=== PATIENT | female | born 1955 | race Caucasian/White ===

== ENCOUNTER → 2016-12-12 | Outpatient (CLI) | payer BC ==
[~2016-12-12] MED LIST: ACET-1311 PO; LEVO125T7 PO; LISI-788 PO; METO50TA16 PO; MULT-506 PO; OXYC-57 PO; PANT40TA PO; SIMV20TA2 PO
--- NOTE | 2016-12-12 08:33 | DIAGNOSTIC IMAGING REPORT ---
BILIARY ULTRASOUND CLINICAL HISTORY: Right upper quadrant abdominal pain COMPARISON STUDY: CT scan dated 08/02/2014 FINDINGS: The pancreas appears normal as visualized. The liver is of increased echogenicity, nonspecific finding often seen in hepatic steatosis. No gallstones are visualized. There is no gallbladder wall thickening. There is no pericholecystic fluid. There is no ductal dilatation. The common bile duct measures 5 mm. There is no right-sided hydronephrosis. IMPRESSION: Increased hepatic echogenicity, a nonspecific finding most often seen in hepatic steatosis. Ultrasonographically normal gallbladder. No ductal dilatation. Electronically signed by: Drake Acuña M.D. 12/12/2016 8:32 AM Dictated Date/Time: 12/12/2016 8:31 AM
--- NOTE | 2016-12-12 08:35 | DIAGNOSTIC IMAGING REPORT ---
BACK ULTRASOUND CLINICAL HISTORY: Subcutaneous cyst. COMPARISON STUDY: No previous studies for comparison. FINDINGS: Sonography of the mid back at site of palpable abnormality was performed. This demonstrated an apparent 3.5 x 3.3 x 0.9 cm elongated hypoechoic lesion within the subcutaneous tissues. No significant color flow is noted. IMPRESSION: Apparent 3.5 x 3.3 x 0.9 cm subcutaneous lesion of the mid back which may reflect the palpable abnormality. This is difficult to differentiate from the adjacent soft tissues. The sonographic appearance is nonspecific and differential considerations include a lipoma or complex cyst. However, clinical follow up to ensure stability is recommended. If interval enlargement, repeat ultrasound or surgical excision is recommended. Electronically signed by: Andres Daugherty M.D. 12/12/2016 8:33 AM Dictated Date/Time: 12/12/2016 8:31 AM
== END | disposition home or self-care (01) ==
LOC: C.ULTRBC 07:54
PROVIDERS: ATTEND Internal Medicine
DX: R10.11 Right upper quadrant pain (principal); L72.9 Follicular cyst of the skin and subcutaneous tissue, unspecified

== ENCOUNTER → 2016-12-19 | Outpatient (CLI) | payer BC ==
[~2016-12-19] MED LIST changes: +SINCALIDE INJ 2.5 MCG in SODIUM CHLORIDE 0.9% 100ML 100 ML IV ONE
--- NOTE | 2016-12-19 11:36 | DIAGNOSTIC IMAGING REPORT ---
NUCLEAR HEPATOBILIARY SCAN WITH EJECTION FRACTION IMAGING CLINICAL HISTORY: Right upper quadrant abdominal pain. COMPARISON STUDY: Abdominal ultrasound dated 12/12/2016.. TECHNIQUE: Dynamic images of the liver and anterior abdomen were obtained every 5 minutes for a total of 60 minutes following the IV administration of 5.2mCi of technetium 99m Choletec. 2.5 mcg of sincalide was then injected with additional images acquired every 5 minutes for 45 minutes to calculate the gallbladder ejection fraction. FINDINGS: The hepatobiliary scan shows prompt and homogeneous hepatic uptake. There is visualized activity within the intra and extrahepatic biliary tree at 15 minutes, and within the gallbladder at 40 minutes. There is normal biliary to bowel transit, with small bowel visualized by 15 minutes. On the sincalide imaging, the gallbladder ejection fraction was measured at 77%. IMPRESSION: 1. Unremarkable nuclear hepatobiliary scan. There is no scintigraphic evidence of cholecystitis. 2. The gallbladder ejection fraction measured 77% which is normal. Electronically signed by: Ba Camara M.D. 12/19/2016 11:35 AM Dictated Date/Time: 12/19/2016 11:34 AM
== END | disposition home or self-care (01) ==
LOC: C.NUCL 08:02
PROVIDERS: ATTEND Internal Medicine
DX: R10.11 Right upper quadrant pain (principal)

== ENCOUNTER → 2017-01-01 | Day surgery (SDC) | payer BC ==
[2016-12-26 11:19] VITALS: BMI 43.0
[~2017-01-01] VITALS: Ht 167.6 cm; Wt 125.0 kg
[~2017-01-01] MED LIST changes: +LIDOCAINE HCL 2% 2 ML VIAL (20MG/ML) ONE; -OXYC-57 PO; +PROPOFOL IV EMULSION 10 MG/ML 20 ML VIAL IV ONE; -SINCALIDE INJ 2.5 MCG in SODIUM CHLORIDE 0.9% 100ML 100 ML IV ONE; +SODIUM CHLORIDE 0.9% 500ML 500 ML IV ONE
[2017-01-01 08:23] VITALS: Ht 167.6 cm; Wt 125.0 kg
[2017-01-01 08:36] VITALS: TEMP 36.8
--- NOTE | 2017-01-01 08:55 | Endo History and Physical ---
History & Physical Date of Service: Jan 01, 2017. Chief Complaint: RUQ ABDOMINAL PAIN Referring Physician: DR. ANIBAL HOLT History of Present Illness RUQ pain and dyspepia Past Medical History Arthritis, Reflux, Hypertension, Thyroid Disease, Other Past Surgical History Hx Cardiac Surgery: No Hx Abdominal Surgery: Yes (HYSTERECTOMY) Hx Post-Op Nausea and Vomiting: Yes Hx Cancer Surgery: No Hx Thoracic Surgery: No Hx Orthopedic: Yes (RT ELBOW ULNAR NERVE TRANSPOSITION, RT CTR, LESI) Hx Urinary Tract Surgery: No Family History Polyp, IBD Social History Smoking Status: Never Smoker Hx Substance Use: No Hx Alcohol Use: Yes (RARELY) Allergies Coded Allergies: Diclofenac (Verified Allergy, Severe, ANAPHYLAXIS, 12/26/16) Ropinirole (Verified Allergy, Unknown, HIVES, 01/01/17) Current Medications Reported Home Medications Medications Dose Route/Sig Max Daily Dose Days Date Category Dose Instructions Protonix (Pantoprazole Sodium) 40 Mg Tab 40 Mg PO QAM 12/26/16 Reported NEW RX Multivitamin (Multivitamins) Tab 1 Tab PO Q2D 02/06/16 Reported Tylenol (Acetaminophen) 325 Mg Tab 650 Mg PO Q6 PRN 02/06/16 Reported Zocor (Simvastatin) 20 Mg Tab 20 Mg PO QPM 08/13/10 Reported Levothroid (Levothyroxine Sodium) 0.125 Mg Tab 0.125 Mg PO QAM 08/13/10 Reported Lopressor (Metoprolol Tartrate) 50 Mg Tab 50 Mg PO BID 05/01/09 Reported Zestoretic 20MG/25MG (HCTZ/Lisinopril) Tab 1 Tab PO QAM 05/01/09 Reported Vital Signs Weight (Kilograms): 125.00 Height (Feet): 5 Height (Inches): 6 Date Time Temp Pulse Resp B/P Pulse Ox O2 Delivery O2 Flow Rate FiO2 01/01/17 08:36 36.8 73 18 130/73 96 Room Air Physical Exam General Appearance: WD/WN, no apparent distress, + obese Respiratory/Chest: Respiratory effort: no dyspnea Auscultation: no wheezing Cardiovascular: Heart Auscultation: RRR, no murmurs Abdomen: Inspection & Palpation: soft, no tenderness, guarding & rebound Assessment and Plan EGD today
--- NOTE | 2017-01-01 09:10 | Discharge Instructions ---
Endoscopy Patient Instructions Date / Procedure(s) Performed Jan 01, 2017. EGD Allergy Information Coded Allergies: Diclofenac (Verified Allergy, Severe, ANAPHYLAXIS, 12/26/16) Ropinirole (Verified Allergy, Unknown, HIVES, 01/01/17) Discharge Date / Findings Jan 01, 2017. Normal endoscopic examination, biopsies pending. Medication Instructions Restart Stopped Medication(s): Restart all medications today. Provider Instructions Activity Restrictions - No exercising or heavy lifting for 24 hours. - Do not drink alcohol the day of the procedure. - Do not drive a car or operate machinery until the day after the procedure. - Do not make any important decisions or sign important papers in 24 hours after the procedure. Following Day: - Return to full activity which may include returning to work/school. Diet Start your diet with liquids and light foods (jello, soup, juice, toast). Then eat your usual diet if not nauseated. Treatment For Common After Affects For mild abdominal pain, bloating, or excessive gas: - Rest - Eat lightly - Lie on right side Follow-Up Information Follow-up with DR. ANIBAL HOLT as scheduled Anesthesia Information What You Should Know You have had a procedure that required some medicine to reduce anxiety and discomfort. This treatment is called moderate sedation. After receiving the treatment, you may be sleepy, but you will be able to breathe on your own. The effects of the treatment may last for several hours. Follow these instructions along with Activity/Diet recommendations noted above: * Do NOT do anything where dizziness or clumsiness would be dangerous. * Rest quietly at home today, then you can be up and about tomorrow. * Have a responsible person stay with you the rest of today. * You may have had an I.V. today. If so, you may take the dressing off later today. Recommendations Call your doctor if: * Trouble breathing * Continuous vomiting for more than 24 hours * Temperature above 101 degrees * Severe abdominal pain or bloating * Pain not relieved by pain medicine ordered * There is increased drainage or redness from any incision * A large amount of rectal bleeding greater than 2-3 tablespoons. (If you had a polyp/s removed or have hemorrhoids, a small amount of blood - from the rectum is to be expected.) * You have any unanswered questions or concerns. IN THE EVENT OF A SERIOUS EMERGENCY, GO TO THE NEAREST EMERGENCY ROOM Your discharge instructions were prepared by provider Rahul Avila. Patient Instructions Signature Page Abbie Leslie Patient (or Guardian) Signature/Date: I have read and understand the instructions given to me by my caregivers. Caregiver/RN/Doctor Signature/Date: The above-named patient and/or guardian has received patient instructions on this date. + Original Patient Signature Page (only) stays with chart. Please make copy for patient.
--- NOTE | 2017-01-01 09:34 | Anesthesiology Progress Note ---
Anesthesia Post Op Note Date & Time Jan 01, 2017 at 09:35 Vital Signs Pain Intensity: 0 Vital Signs Past 12 Hours Date Time Temp Pulse Resp B/P Pulse Ox O2 Delivery O2 Flow Rate FiO2 01/01/17 09:32 61 18 136/75 97 Room Air 01/01/17 09:17 70 20 130/73 95 Room Air 01/01/17 08:36 36.8 73 18 130/73 96 Room Air Notes Mental Status: alert / awake / arousable, participated in evaluation Pt Amnestic to Procedure: Yes Nausea / Vomiting: adequately controlled Pain: adequately controlled Airway Patency, RR, SpO2: stable & adequate BP & HR: stable & adequate Hydration State: stable & adequate Anesthetic Complications: no major complications apparent
[2017-01-01 09:47] VITALS: BP 137/94; PULSE 63; O2SAT 97
--- NOTE | 2017-01-01 10:21 | GI REPORT ---
Procedure Date: 01/01/2017 8:58 AM Procedure: Upper GI endoscopy Indications: Abdominal pain in the right upper quadrant, Dyspepsia Medicines: Monitored Anesthesia Care Complications: No immediate complications. Estimated blood loss: None. Estimated Blood Loss: Estimated blood loss: none. Procedure: Pre-Anesthesia Assessment: - Prior to the procedure, a History and Physical was performed, and patient medications, allergies and sensitivities were reviewed. The patient's tolerance of previous anesthesia was reviewed. - ASA Grade Assessment: II - A patient with mild systemic disease. After obtaining informed consent, the endoscope was passed under direct vision. Throughout the procedure, the patient's blood pressure, pulse, and oxygen saturations were monitored continuously. The scope was introduced through the mouth, and advanced to the third part of duodenum. The upper GI endoscopy was accomplished with ease. The patient tolerated the procedure well. Findings: The upper third of the esophagus, middle third of the esophagus and lower third of the esophagus were normal. The Z-line was regular and was found 38 cm from the incisors. Biopsies were taken with a cold forceps for histology. A small sliding hiatus hernia was present. The entire examined stomach was normal. Biopsies were taken with a cold forceps for Helicobacter pylori testing. The examined duodenum was normal. Verification of patient identification for the specimens was done by the physician and nurse using the patient's name, date and medical record number. Impression: - Normal upper third of esophagus, middle third of esophagus and lower third of esophagus. - Z-line regular, 38 cm from the incisors. Biopsied. - Small sliding hiatus hernia. - Normal stomach. Biopsied. - Normal examined duodenum. Recommendation: - Await pathology results. - Discharge patient to home (with escort). Rahul Avila M.D. Rahul Avila MD 01/01/2017 9:16:01 AM This report has been signed electronically. Note Initiated On: 01/01/2017 8:58 AM I attest to the content of the Intraoperative Record and orders documented therein, exceptions below
== END | disposition home or self-care (01) ==
LOC: C.GI 07:48
PROVIDERS: ATTEND Internal Medicine Gastroenterology
DX: K21.0 Gastro-esophageal reflux disease with esophagitis (principal); K30 Functional dyspepsia; K44.9 Diaphragmatic hernia without obstruction or gangrene; M19.90 Unspecified osteoarthritis, unspecified site; I10 Essential (primary) hypertension; E07.9 Disorder of thyroid, unspecified; Z83.79 Family history of other diseases of the digestive system; Z88.8 Allergy status to other drugs, medicaments and biological substances

== ENCOUNTER → 2017-02-23 | Day surgery (SDC) | payer BC ==
[~2017-02-23] VITALS: Ht 170.2 cm; Wt 125.0 kg
[~2017-02-23] MED LIST changes: +MIDAZOLAM HCL 1 MG/ML 2ML VIAL ONE; +ONDANSETRON INJ 2 MG/ML 2 ML VIAL ONE
[2017-02-23 10:27] VITALS: Ht 170.2 cm; Wt 125.0 kg
[2017-02-23 10:41] VITALS: TEMP 37.2
--- NOTE | 2017-02-23 11:04 | Endo History and Physical ---
History & Physical Date of Service: February 23, 2017. Chief Complaint: RUQ pain Referring Physician: Dr Urrutia History of Present Illness 61 yo CF who presents for colonoscopy secondary to RUQ abdominal pain. Past Medical History Arthritis, Reflux, Hypertension, Thyroid Disease, Other Past Surgical History Hx Cardiac Surgery: No Hx Internal Defibrillator: No Hx Pacemaker: No Hx Abdominal Surgery: Yes (hysterectomy) Hx of Implantable Prosthesis: No Hx Post-Op Nausea and Vomiting: Yes Hx Cancer Surgery: No Hx Thoracic Surgery: No Hx Orthopedic: No Hx Urinary Tract Surgery: No Family History None Social History Smoking Status: Never Smoker Hx Substance Use: No Hx Alcohol Use: No Allergies Coded Allergies: Diclofenac (Verified Allergy, Severe, ANAPHYLAXIS, 12/26/16) Ropinirole (Verified Allergy, Unknown, HIVES, 01/01/17) Current Medications Reported Home Medications Medications Dose Route/Sig Max Daily Dose Days Date Category Dose Instructions Protonix (Pantoprazole Sodium) 40 Mg Tab 40 Mg PO QAM 12/26/16 Reported NEW RX Multivitamin (Multivitamins) Tab 1 Tab PO Q2D 02/06/16 Reported Tylenol (Acetaminophen) 325 Mg Tab 650 Mg PO Q6 PRN 02/06/16 Reported Zocor (Simvastatin) 20 Mg Tab 20 Mg PO QPM 08/13/10 Reported Levothroid (Levothyroxine Sodium) 0.125 Mg Tab 0.125 Mg PO QAM 08/13/10 Reported Lopressor (Metoprolol Tartrate) 50 Mg Tab 50 Mg PO BID 05/01/09 Reported Zestoretic 20MG/25MG (HCTZ/Lisinopril) Tab 1 Tab PO QAM 05/01/09 Reported Vital Signs Weight (Kilograms): 125 Height (Feet): 5 Height (Inches): 7 Date Time Temp Pulse Resp B/P Pulse Ox O2 Delivery O2 Flow Rate FiO2 02/23/17 10:41 37.2 57 18 123/75 100 Room Air Physical Exam General Appearance: WD/WN, no apparent distress Respiratory/Chest: Auscultation: breath sounds normal Cardiovascular: Heart Auscultation: RRR Abdomen: Bowel Sounds: normal Inspection & Palpation: soft, non-distended, no tenderness, guarding & rebound Assessment and Plan Assessment: 61 yo CF who presents for colonoscopy secondary to RUQ abdominal pain. Plan: Proceed with colonoscopy.
--- NOTE | 2017-02-23 11:26 | Discharge Instructions ---
Endoscopy Patient Instructions Date / Procedure(s) Performed February 23, 2017. Colonoscopy Allergy Information Coded Allergies: Diclofenac (Verified Allergy, Severe, ANAPHYLAXIS, 12/26/16) Ropinirole (Verified Allergy, Unknown, HIVES, 01/01/17) Discharge Date / Findings February 23, 2017. Colon polyp Internal hemorrhoids Medication Instructions OK to resume all medications today as prescribed Reported Home Medications Medications Dose Route/Sig Max Daily Dose Days Date Category Dose Instructions Protonix (Pantoprazole Sodium) 40 Mg Tab 40 Mg PO QAM 12/26/16 Reported NEW RX Multivitamin (Multivitamins) Tab 1 Tab PO Q2D 02/06/16 Reported Tylenol (Acetaminophen) 325 Mg Tab 650 Mg PO Q6 PRN 02/06/16 Reported Zocor (Simvastatin) 20 Mg Tab 20 Mg PO QPM 08/13/10 Reported Levothroid (Levothyroxine Sodium) 0.125 Mg Tab 0.125 Mg PO QAM 08/13/10 Reported Lopressor (Metoprolol Tartrate) 50 Mg Tab 50 Mg PO BID 05/01/09 Reported Zestoretic 20MG/25MG (HCTZ/Lisinopril) Tab 1 Tab PO QAM 05/01/09 Reported Provider Instructions Activity Restrictions - No exercising or heavy lifting for 24 hours. - Do not drink alcohol the day of the procedure. - Do not drive a car or operate machinery until the day after the procedure. - Do not make any important decisions or sign important papers in 24 hours after the procedure. Following Day: - Return to full activity which may include returning to work/school. Diet Start your diet with liquids and light foods (jello, soup, juice, toast). Then eat your usual diet if not nauseated. Treatment For Common After Affects For mild abdominal pain, bloating, or excessive gas: - Rest - Eat lightly - Lie on right side Follow-Up Information Follow-up with Dr Urrutia as scheduled Anesthesia Information What You Should Know You have had a procedure that required some medicine to reduce anxiety and discomfort. This treatment is called moderate sedation. After receiving the treatment, you may be sleepy, but you will be able to breathe on your own. The effects of the treatment may last for several hours. Follow these instructions along with Activity/Diet recommendations noted above: * Do NOT do anything where dizziness or clumsiness would be dangerous. * Rest quietly at home today, then you can be up and about tomorrow. * Have a responsible person stay with you the rest of today. * You may have had an I.V. today. If so, you may take the dressing off later today. Recommendations Call your doctor if: * Trouble breathing * Continuous vomiting for more than 24 hours * Temperature above 101 degrees * Severe abdominal pain or bloating * Pain not relieved by pain medicine ordered * There is increased drainage or redness from any incision * A large amount of rectal bleeding greater than 2-3 tablespoons. (If you had a polyp/s removed or have hemorrhoids, a small amount of blood - from the rectum is to be expected.) * You have any unanswered questions or concerns. IN THE EVENT OF A SERIOUS EMERGENCY, GO TO THE NEAREST EMERGENCY ROOM Your discharge instructions were prepared by provider Ren Gimenez. Patient Instructions Signature Page Abbiealejandro Leslie Patient (or Guardian) Signature/Date: I have read and understand the instructions given to me by my caregivers. Caregiver/RN/Doctor Signature/Date: The above-named patient and/or guardian has received patient instructions on this date. + Original Patient Signature Page (only) stays with chart. Please make copy for patient.
--- NOTE | 2017-02-23 11:28 | GI REPORT ---
Procedure Date: 02/23/2017 11:04 AM Procedure: Colonoscopy Indications: Abdominal pain in the right upper quadrant Medicines: Monitored Anesthesia Care Complications: No immediate complications. Estimated Blood Loss: Estimated blood loss: none. Procedure: Pre-Anesthesia Assessment: - Prior to the procedure, a History and Physical was performed, and patient medications and allergies were reviewed. The patient's tolerance of previous anesthesia was also reviewed. The risks and benefits of the procedure and the sedation options and risks were discussed with the patient. All questions were answered, and informed consent was obtained. Prior Anticoagulants: The patient has taken no previous anticoagulant or antiplatelet agents. ASA Grade Assessment: III - A patient with severe systemic disease. After reviewing the risks and benefits, the patient was deemed in satisfactory condition to undergo the procedure. After I obtained informed consent, the scope was passed under direct vision. Throughout the procedure, the patient's blood pressure, pulse, and oxygen saturations were monitored continuously. The scope was introduced through the anus and advanced to the terminal ileum. The colonoscopy was performed without difficulty. The patient tolerated the procedure well. The quality of the bowel preparation was good. The terminal ileum, ileocecal valve, appendiceal orifice, and rectum were photographed. Findings: A 5 mm polyp was found in the cecum. The polyp was sessile. The polyp was removed with a hot snare. Resection and retrieval were complete. Non-bleeding internal hemorrhoids were found during retroflexion. The hemorrhoids were small. Impression: - One 5 mm polyp in the cecum, removed with a hot snare. Resected and retrieved. - Non-bleeding internal hemorrhoids. Recommendation: - Resume previous diet. - Continue present medications. - Repeat colonoscopy for surveillance based on pathology results. - Return to primary care physician as previously scheduled. Ren Gimenez DO 02/23/2017 11:27:43 AM This report has been signed electronically. Note Initiated On: 02/23/2017 11:04 AM I attest to the content of the Intraoperative Record and orders documented therein, exceptions below
[2017-02-23 11:59] VITALS: BP 115/84; PULSE 59; O2SAT 96
--- NOTE | 2017-02-23 12:01 | Anesthesiology Progress Note ---
Anesthesia Post Op Note Date & Time February 23, 2017 at 12:01 Vital Signs Pain Intensity: 0 Vital Signs Past 12 Hours Date Time Temp Pulse Resp B/P Pulse Ox O2 Delivery O2 Flow Rate FiO2 02/23/17 11:59 59 20 115/84 96 Room Air 02/23/17 11:44 61 20 115/71 94 Room Air 02/23/17 11:29 73 20 95/58 95 Room Air 02/23/17 10:41 37.2 57 18 123/75 100 Room Air Notes Mental Status: alert / awake / arousable, participated in evaluation Pt Amnestic to Procedure: Yes Nausea / Vomiting: adequately controlled Pain: adequately controlled Airway Patency, RR, SpO2: stable & adequate BP & HR: stable & adequate Hydration State: stable & adequate Anesthetic Complications: no major complications apparent Pt did well.
== END | disposition home or self-care (01) ==
LOC: C.GI 10:11
PROVIDERS: ATTEND Internal Medicine
DX: D12.0 Benign neoplasm of cecum (principal); K64.8 Other hemorrhoids; R10.11 Right upper quadrant pain; I10 Essential (primary) hypertension; K21.9 Gastro-esophageal reflux disease without esophagitis; E07.9 Disorder of thyroid, unspecified; M19.90 Unspecified osteoarthritis, unspecified site; Z79.899 Other long term (current) drug therapy

== ENCOUNTER → 2017-08-10 | Outpatient (CLI) | payer BC ==
[~2017-08-10] MED LIST changes: -LIDOCAINE HCL 2% 2 ML VIAL (20MG/ML) ONE; -MIDAZOLAM HCL 1 MG/ML 2ML VIAL ONE; -ONDANSETRON INJ 2 MG/ML 2 ML VIAL ONE; -PROPOFOL IV EMULSION 10 MG/ML 20 ML VIAL IV ONE; -SODIUM CHLORIDE 0.9% 500ML 500 ML IV ONE
[2017-08-10 16:53] LABS: URINE APPEARANCE CLEAR (CLEAR); URINE BILIRUBIN NEG (NEG); URINE COLOR YELLOW; URINE EPITHELIAL CELL AUTO 0-5 /lpf (0-5); URINE NITRITE NEG (NEG); URINE PH 6.5 (4.5-7.5); URINE SPECIFIC GRAVITY 1.009 (1.000-1.030); UROBILINOGEN NEG (NEG); ZZUR CULT IF INDIC CLEAN CATCH NO
[2017-08-10 16:54] LABS: MANUAL MICROSCOPIC REQUIRED? NO; REVIEW REQ? NO
== END | disposition home or self-care (01) ==
LOC: C.LABSPEC 16:24
PROVIDERS: ATTEND Obstetrics & Gynecology
DX: R35.0 Frequency of micturition (principal)

== ENCOUNTER → 2017-08-10 | Outpatient (CLI) | payer BC | END | disposition home or self-care (01) | LOC: C.PAPS 09:41 | PROVIDERS: ATTEND Obstetrics & Gynecology | DX: Z01.419 Encounter for gynecological examination (general) (routine) without abnormal findings (principal) ==

== ENCOUNTER 2021-12-24 11:40 | Observation (INO) ==
--- NOTE | 2021-09-23 15:17 | PAT Medication Instructions ---
Medication Instructions Date of Service September 23, 2021 Home Medications Medication Instructions Recorded metoprolol tartrate 50 mg tablet 25 mg PO BID #60 tab 05/27/21 (Lopressor) tramadol 50 mg tablet 50 - 100 mg PO Q6H PRN #15 tab 06/02/21 simvastatin 20 mg tablet 20 mg PO HS #90 tab 08/19/21 metoprolol tartrate 50 mg tablet (Lopressor) 25 mg PO BID tramadol 50 mg tablet 50 - 100 mg PO Q6H PRN simvastatin 20 mg tablet 20 mg PO HS acetaminophen 650 mg tablet,extended release 650 mg PO Q12H PRN cholecalciferol (vitamin D3) 25 mcg (1,000 unit) capsule (Vitamin D3) 25 mcg PO QAM clindamycin phosphate 1 % topical solution 1 applic TOP DAILY PRN ibuprofen 200 mg capsule (Motrin IB) 200 mg PO Q6H PRN levothyroxine 137 mcg tablet 137 mcg PO QAM lisinopril 20 mg-hydrochlorothiazide 25 mg tablet 1 tab PO QAM ASK your surgeon for instructions ibuprofen 200 mg capsule (Motrin IB) 200 mg PO Q6H PRN STOP taking 24 hours before surgery clindamycin phosphate 1 % topical solution 1 applic TOP DAILY PRN DO NOT take the morning of surgery cholecalciferol (vitamin D3) 25 mcg (1,000 unit) capsule (Vitamin D3) 25 mcg PO QAM lisinopril 20 mg-hydrochlorothiazide 25 mg tablet 1 tab PO QAM Take morning of surgery With a small sip of water, OTHERWISE NOTHING TO EAT OR DRINK AFTER MIDNIGHT: metoprolol tartrate 50 mg tablet (Lopressor) 25 mg PO BID tramadol 50 mg tablet 50 - 100 mg PO Q6H PRN(okay to take up to 4 hours prior to surgery if needed). acetaminophen 650 mg tablet,extended release 650 mg PO Q12H PRN(okay to take up to 4 hours prior to surgery if needed). levothyroxine 137 mcg tablet 137 mcg PO QAM Take evening before surgery metoprolol tartrate 50 mg tablet (Lopressor) 25 mg PO BID tramadol 50 mg tablet 50 - 100 mg PO Q6H PRN(if needed) simvastatin 20 mg tablet 20 mg PO HS acetaminophen 650 mg tablet,extended release 650 mg PO Q12H PRN(if needed) Other Notes If you have any questions please call us at [phone] or [phone] or [phone] or [phone]
--- NOTE | 2021-12-17 11:01 | Anesthesiology Consultation ---
Date of Service December 17, 2021 Assessment & Plan (1) Encounter for pre-operative examination: - upcoming PCP routine visit 12/18/2021. - PCP office visit 06/11/2021 [place]: "...needs a knee replacement, but has to wait 12 weeks after her Cortisone injection. Carotid stenosis - last carotid u/s completed 2015 showed less than 50% stenosis b/l. Last carotid Doppler was 03/09/2020 and showed no significant stenosis. Hypertension - the patient is compliant with lisinopril/HCTZ as well as metoprolol. Blood pressure is controlled in the office today. She c/o feeling fatigued and woozy. Persisted despite increase in her levothyroxine. We discussed cutting her metoprolol in 10/13 from 50mg to 25mg BID and seeing if her fatigue/wooziness improves. She admits she had a sleep study years ago which showed no apnea but did show restless legs. She is using crutches today and has pain in her left knee. She has not checked BP at home, but has not checked recently. Hypothyroidism - patient is compliant with use of levothyroxine 125mcg daily. She still is feeling somewhat fatigued. No hot/cold sensation. No abnormal weight loss or weight gain. Most recent TSH is elevated at 4.9. We discussed increasing her Levothyroxine to 137mcg daily...Abnormal mammogram - the patient had a stable mammogram in January,. She notes she needs to reschedule but would like to wait until after her knee is taking care of. Tubular adenoma - on colonoscopy 02/23/2017. GI recommends repeat in 5 years..." Pt states that with medication change feels better and now is only occasionally tired in afternoon since reducing physical activity due to knee. Denies dizziness, lightheadedness, weakness or "wooziness." - COVID screening: Per assessment on 12/17/2021: Travel screen negative, no known COVID-19 positive contacts or current COVID-19 related symptoms in past 2 weeks. Patient vaccinated. Surgeon arranging preop COVID testing, scheduled 12/20/2021. Awaiting results. Chart Review Chart Review: Acceptable Risk for Surgery (will also review upcoming PCP visit) and Patient seen in Pre Admission Testing Teaching & Discussion Pre-Anesthesia Teaching/Discussion Notes: Instructed NPO after midnight before surgery, except medications with 15 cc of water. Medication instructions provided according to the PAT guidelines. History Surgery Operation Date: 10/15/21 10:15 Proposed Procedures p Left Total Knee Arthroplasty - Ez Vital MD Operation Date: 12/24/21 13:40 Proposed Procedures p Left Total Knee Arthroplasty - Ez Vital MD Height/Weight Height: 5 ft 7 in Weight: 136.8 kg Allergies Allergy/AdvReac Type Severity Reaction Status Date / Time diclofenac Allergy Severe Anaphylaxis Verified 12/13/21 12:41 Medications Home Medications Medication Instructions Recorded Confirmed Last Taken metoprolol tartrate 50 mg tablet 25 mg PO BID #60 tab 05/27/21 12/13/21 Unknown (Lopressor) simvastatin 20 mg tablet 20 mg PO HS #90 tab 08/19/21 12/13/21 Unknown acetaminophen 650 mg 650 mg PO Q12H PRN 09/23/21 12/13/21 Unknown tablet,extended release cholecalciferol (vitamin D3) 25 25 mcg PO QAM 09/23/21 12/13/21 Unknown mcg (1,000 unit) capsule (Vitamin D3) ibuprofen 200 mg capsule (Motrin 200 mg PO Q6H PRN 09/23/21 12/13/21 Unknown IB) levothyroxine 137 mcg tablet 137 mcg PO QAM 09/23/21 12/13/21 Unknown lisinopril 20 1 tab PO QAM 09/23/21 12/13/21 Unknown mg-hydrochlorothiazide 25 mg tablet Past Medical History Medical History (Updated 12/17/21 @ 16:41 by Janene Sandoval PA-C) Carotid artery stenosis There is mild to moderate echogenic atherosclerotic plaque present. No evidence of hemodynamically significant carotid stenosis-02/2020 carotid doppler GERD (gastroesophageal reflux disease) controlled, stable per pt History of basal cell carcinoma nose s/p Moh's Hyperlipidemia Hypertension controlled, stable per pt Hypothyroidism Osteoarthritis Ureteral stone TO FOLLOW UP WITH UROLOGY, pt reports no issues, ongoing monitoring Patient denies h/o stroke, seizures, heart attack, heart failure, DM, blood clots or blood transfusions. Exercise / Class Metabolic Activity III < 4 Walking/Shop/Light housework (denies CP or SOB) Past Family History Family History Mother Hypertension Kidney stones Father Prostate cancer Denies family history of Ovarian cancer Breast cancer Colorectal cancer Past Surgical History Surgical History Family history of reaction to anesthesia MOTHER>NAUSEA H/O total thyroidectomy D/T THYROID NODULE History of colonoscopy History of hysterectomy History of surgery on arm right wrist and elbow nerve transposition PONV (postoperative nausea and vomiting) Status post breast lumpectomy left breast (BENIGN) Past Anesthesia History Other (mother with nausea) History of PONV No Hx of Motion Sickness and History of PONV (denies needing scop patch) Social History Smoking Status: Never smoker Do You Dip or Chew Tobacco: No Hx Alcohol Use: Yes Alcohol type: hard liquor alcohol intake frequency: holidays/special occasions only Alcohol Intake Frequency Comment: MIXED DRINK Hx Substance Use: No substance use type: does not use Review of Systems Occasional snoring, denies witnessed apneas. Sleep study negative for sleep apnea, demonstrated limb movements. Patient denies chest pain, shortness of breath, dyspnea on exertion, fever, chills, cough, wheezing, or palpitations. Physical Exam Vital Signs Vitals BP 121/80 P 70 TEMP 98.8 SP02 94% on RA RESP 17 Physical Full cervical extension range of motion without pain Full TMJ range of motion TMD 3 finger breaths Mallampati Score 3 Dentition: intact, one missing left lower back tooth; denies chipped or loose teeth, caps/crowns, implants or bridges Lungs: normal respiratory effort. Clear throughout to auscultation, no adventitious breath sounds Cardiac: regular rate and rhythm, no murmurs noted Carotid arteries: negative bruit bilat Extremities: no distal extremity edema Lab Results Anesthesia Preop Results Results Anesthesia Widget: WBC 6.37 K/uL (4.8-10.8) 12/17/21 Hgb 13.8 g/dL (12.0-16.0) 12/17/21 Hct 41.6 % (37-47) 12/17/21 Plt 211 K/uL (130-400) 12/17/21 Na 139 mmol/L (136-145) 12/17/21 K 3.5 mmol/L (3.5-5.1) 12/17/21 Cl 101 mmol/L (98-107) 12/17/21 CO2 31 mmol/L (21-32) 12/17/21 BUN 20 mg/dl (6-23) 12/17/21 Creat 0.72 mg/dl (0.6-1.2) 12/17/21 Glucose Level 118 mg/dl (70-99(Fasting)) H 12/17/21 PT 11.0 Seconds (9.0-12.0) 12/17/21 PTT 29.0 Seconds (21.0-31.0) 12/17/21 INR 1.0 (0.9-1.1) 12/17/21 Urine Color Yellow 12/17/21 Urine Appearance Clear (Clear) 12/17/21 Urine pH 6.5 (4.5-7.5) 12/17/21 Urine Specific Corwith 1.019 (1.000-1.030) 12/17/21 Urine Protein Negative (Negative) 12/17/21 Urine Glucose (UA) Negative (Negative) 12/17/21 Urine Ketones Negative (Negative) 12/17/21 Urine Blood Trace (Negative) H 12/17/21 Urine Nitrite Negative (Negative) 12/17/21 Urine Bilirubin Negative (Negative) 12/17/21 Urine Urobilinogen Negative (Negative) 12/17/21 Urine Leukocyte Esterase Negative (Negative) 12/17/21 Urine WBC (Auto) 1-5 /hpf (0-5) 12/17/21 Urine RBC (Auto) 5-10 /hpf (0-4) H 12/17/21 Urine Hyaline Casts (Auto) 0 /lpf (0-5) 12/17/21 Urine Epithelial Cells (Auto) >30 /lpf (0-5) H 12/17/21 Urine Bacteria (Auto) 1+ (Negative) H 12/17/21 Blood Type O Positive 12/17/21 Antibody Screen NEGATIVE 12/17/21 Lab Comments: Amelia at surgeon's office made aware of abnormal UA. Testing Electrocardiogram Date: 12/17/21 NSR, rate 73 bpm Chest X-Ray Date: 12/17/21 FINDINGS: The cardiac silhouette is enlarged. No pneumothorax, large pleural effusion or overt pulmonary edema. Minimal bibasilar atelectasis. Degenerative changes of the shoulders and spine. IMPRESSION: Cardiomegaly without acute process. Other Testing Carotid doppler 03/09/2020 Mild to moderate echogenic atherosclerotic plaque present . No evidence of hemodynamically significant carotid stenosis.
[~2021-12-24 11:40] MED LIST changes: -ACET-1311 PO; +ACETAMINOPHEN 500 MG TAB PO SCH; +BUPIVACAINE 0.25% 30 ML VIAL ONE; +BUPIVACAINE 0.5 % 5 MG/1 ML PF 10ML VIAL ONE; +DEXAMETHASONE SOD INJ 4 MG/ML VIAL ONE; +EPINEPHrine INJ 1 MG/ML AMP ONE; +FAMOTIDINE 20 MG TAB PO SCH; +GABAPENTIN 300 MG CAP PO SCH; -LEVO125T7 PO; -LISI-788 PO; +LR 500ML BOLUS, THEN 15ML/HR IV SCH; +LR 60ML/HR IV SCH; -METO50TA16 PO; -MULT-506 PO; -PANT40TA PO; +ROPIVACAINE 0.5% HCL/PF 150 MG, BUPIVACAINE 0.75% MPF 20 ML, EPINEPHrine 0.15 MG, dexAM... INFIL SCH; -SIMV20TA2 PO; +Scopolamine 1 MG TDSY TD SCH; +TRANEXAMIC ACID 1,000 MG **IV Intra-op IV SCH; +TRANEXAMIC ACID 1,000 MG **IV Pre-op IV SCH; +oxyCODONE HCL 10 MG TABCR (OxyCONTIN) PO SCH
[2021-12-24] MEDS ORDERED: fentaNYL citrate 100 MCG/2 ML VIAL ONE (11:49)
[2021-12-24] MEDS ORDERED: MIDAZOLAM HCL 1 MG/ML 2ML VIAL ONE (11:49)
[2021-12-24] MEDS ORDERED: PROPOFOL IV EMULSION 10 MG/ML 20 ML VIAL IV ONE ×5 (11:50→16:09)
--- NOTE | 2021-12-24 13:35 | History & Physical Bridge Note ---
Date of Service December 24, 2021 History & Physical Bridge Note I have examined the patient, reviewed the History & Physical and in the interval since the performance of the History & Physical I have noted the following changes of clinical significance: no changes noted Patient is aware of the risks, is asymptomatic, and tested negative for COVID- 19.
[2021-12-24] MEDS ORDERED: ORTHO JOINT ANESTHETIC ONE (13:50)
[2021-12-24] MEDS ORDERED: ONDANSETRON INJ 2 MG/ML 2 ML VIAL IV PRN ×2 (14:44→17:02)
[2021-12-24] MEDS ORDERED: ePHEDrine sulfate 50 MG/ML AMP IV PRN (14:44)
[2021-12-24] MEDS ORDERED: fentaNYL citrate 100 MCG/2 ML VIAL IV PRN (14:44)
[2021-12-24] MEDS ORDERED: ATROPINE SULFATE 0.1 MG/ML 10ML SYR IV PRN (14:44)
[2021-12-24] MEDS ORDERED: PHENYLEPHRINE HCL 10 MG/ML VIAL ONE (15:00)
[2021-12-24] MEDS ORDERED: ePHEDrine sulfate 50 MG/ML AMP ONE (15:00)
--- NOTE | 2021-12-24 16:36 | Operative Report ---
Post Operative Report Pre & Post Diagnosis Operation Date: 12/24/21 13:40 Pre-Op Diagnosis: Left Knee Osteoarthritis Post-Op Diagnosis: Left Knee Osteoarthritis I identified the patient and participated in the time-out.: Yes Procedure Operation Date: 12/24/21 13:40 Actual Procedures p Left Total Knee Arthroplasty(Left) - Ez Vital MD Surgeon Ez Vital MD Insurance Processor Fabián Eli MD & Sarah Jay PA-C Estimated Blood Loss 100 Findings See Below Examined Under Anesthesia: ROM -- There was 0 degrees to 100 degrees of flexion Ligamentous examination -- revealed stable Mei, posterior drawer, varus stress at 0 and 30 degrees; and valgus stress at 0 and 30 degrees, pseudo- laxity. Outerbridge Type IV changes of medial compartment and Patellofemoral co mpartment, Grade II-III changes lateral compartment. Fluids 1100 cc Specimens left knee contents Anesthesia Type MAC Spinal Regional Complications none Indications This is a 66-year-old female who has clinical and radiographic findings consistent with osteoarthritis of the a left knee. I recommended that a left total knee replacement be performed. The patient understands the risks of surgery, which include but not limited to: bleeding, infection, re-operation, damage to nerves and arteries, continued knee pain, knee stiffness, DVT, and . The patient understands all of these instructions and explanations, all of his questions have been satisfactorily addressed and the patient has elected to proceed. Informed consent was signed. Description of Procedure IMPLANTS: 1. Femur: Triathlon #3 Left PS. 2. Tibia: Triathlon #2 [place] with 12 x 50 mm stem. 3. Insert: Triathlon #2 x 9 mm PS X3 poly. 4. Patella: Triathlon A32 x 10 mm X3 poly. 5. Simplex cement. Procedure: The patient was taken to the Operating Room and placed in the supine position after spinal and adductor canal nerve block was administered. My initials and a multidisciplinary time-out were used to identify the left leg as the correct operative limb. A tourniquet was placed high in the thigh. Prior to the incision, 3 grams of intravenous Ancef were given. The left leg was then prepped and draped in a standard sterile fashion. An Esmarch was used to exsanguinate the leg and the tourniquet was inflated to 250 mmHg. The planned mid-line 20 cm incision was created exposing the extensor mechanism. The medial parapatellar arthrotomy was made and the patella was everted. The patella was addressed first. It was prepared by reaming from 19 mm down to 12 mm. An A32 button was found to fit best. The peg holes were made in the standard fashion. The femur was addressed next and the guide gabrielle was placed intramedullary. The initial cutting block was placed with 5 degrees of valgus and removing 8 mm for the distal cut. The cut was made and the 4-in-1 cutting block for a size 3 femur was placed. These cuts and the cuts to place the box were made in the standard fashion. Our attention was then drawn to the tibia cut with the external cutting guide, taking 4 mm from the medial low side. There was sufficient extension and flexion gap to fit a 9 mm spacer. A #2 Tibial baseplate fit well. A trial with a 9 mm spacer showed excellent stability in both flexion and extension, with good ligament balance, and thumbs free patellar tracking. Range of motion of 0- 110 degrees. The tibial baseplate was prepped for the keel and stem. A stem was used due to some areas of soft bone, to avoid subsidence. All the trial components were tested again, with good stability and thumbs free tracking of the patella. All components were removed. The tourniquet was deflated. Hemostasis was obtained. 90 ml of total knee cocktail were injected into the soft tissues and periosteum. A bone plug was placed in the femur and covered with bone wax. After a 15 minute break, the limb was exsanguinated again and the tourniquet was re-inflated. All surfaces were copiously irrigated prior to placement of the components. The femoral component followed by Tibial baseplate were cemented in place and the 9 mm X3 poly was placed. Next, the patellar button was placed using the same Simplex cement. Again the range of motion and stability were unchanged. The extensor mechanism was closed with 1-0 and 0 Vicryl with the knee bent approximately 60 degrees in a standard fashion. The peritenon and deep fascia was closed with 2-0 Vicryl. The subcutaneous layer was closed with 3-0 Vicryl. The skin was closed with Zipline and shield. The limb was cleaned and dried. 4x4 dressing was placed over top followed by ABDs, sterile Webril, and a foot to thigh Lobo bandage. The patient was then transferred to the Recovery Room in stable condition. The sponge and needle counts were correct. POST-OP INSTRUCTIONS: The patient will be WBAT. The patient will be admitted to the hospital. The patient will use the knee immobilizer when ambulating and standing until good quad control is achieved. Labs will be obtained during the stay. DVT prophylaxis will include Lovenox 30mg Subq BID followed by aspirin 325mg BID for 3 weeks, TEDs, and mechanical foot pumps. The dressing will be changed prior to their discharge or postop day #2 and possibly covered with a Silverlon dressing, whichever comes first. I attest to the content of the Intraoperative Record and any orders documented therein. Any exceptions are noted below.
--- NOTE | 2021-12-24 16:36 | Post Operative Brief Note ---
Immediate Post Op Note v1 Date of Surgery December 24, 2021 Pre & Post Diagnosis Operation Date: 12/24/21 13:40 Pre-Op Diagnosis: Left Knee Osteoarthritis Post-Op Diagnosis: Left Knee Osteoarthritis I identified the patient and participated in the time-out.: Yes Procedure Operation Date: 12/24/21 13:40 Actual Procedures p Left Total Knee Arthroplasty(Left) - Ez Vital MD Surgeon Ez Vital MD Threader Operator Fabián Eli MD & M Misty PAZeferino Estimated Blood Loss 100 Findings Consistent with Post-Op Diagnosis Fluids 1100 cc Specimens Left knee contents Anesthesia Type MAC Spinal Regional Complications none
[2021-12-24] MEDS ORDERED: MAGNESIUM HYDROXIDE SUSP 30 ML UDC PO PRN (17:02)
[2021-12-24] MEDS ORDERED: bisacodyL 10 MG SUPP PR PRN (17:02)
[2021-12-24] MEDS ORDERED: METOCLOPRAMIDE HCL INJ 5 MG/ML 2 ML VIAL IV PRN (17:02)
[2021-12-24] MEDS ORDERED: HYDROmorphone INJ 0.5 MG/0.5 ML SYR IV PRN (17:02)
[2021-12-24] MEDS ORDERED: NALOXONE HCL 0.4 MG/1 ML VIAL/CARP IV PRN (17:02)
--- NOTE | 2021-12-24 17:02 | Operative Report ---
Post Operative Report Pre & Post Diagnosis Operation Date: 10/15/21 10:15 <No data on this case meets the specified criteria> Operation Date: 12/24/21 13:40 Pre-Op Diagnosis: Left Knee Osteoarthritis Post-Op Diagnosis: Left Knee Osteoarthritis I identified the patient and participated in the time-out.: Yes Procedure Operation Date: 10/15/21 10:15 <No data on this case meets the specified criteria> Operation Date: 12/24/21 13:40 Actual Procedures p Left Total Knee Arthroplasty(Left) - Ez Vital MD Surgeon Dr. Ez Vital Senior C Developer Fabián Eli MD & M ABHISHEK Jay Estimated Blood Loss 100 Findings Consistent with Post-Op Diagnosis Specimens left knee synovium and loose body Description of Procedure Pt was taken to operating room, placed under general anesthesia with peripheral nerve block. Pt was given 3g Ancef IV. Prepped and draped in sterile fashion. I was present during the entire case and assisted with positioning, instrumentation, closure and dressings. Please see Dr. Vital's op report for further detail. Pt was awake and transferred to PACU in stable condition I attest to the content of the Intraoperative Record and any orders documented therein. Any exceptions are noted below.
--- NOTE | 2021-12-24 17:06 | Operative Report ---
Post Operative Report Pre & Post Diagnosis Operation Date: 10/15/21 10:15 <No data on this case meets the specified criteria> Operation Date: 12/24/21 13:40 Pre-Op Diagnosis: Left Knee Osteoarthritis Post-Op Diagnosis: Left Knee Osteoarthritis I identified the patient and participated in the time-out.: Yes Procedure Operation Date: 10/15/21 10:15 <No data on this case meets the specified criteria> Operation Date: 12/24/21 13:40 Actual Procedures p Left Total Knee Arthroplasty(Left) - Ez Vital MD Surgeon Dov. Amanuel NORIEGA Pipe Supervisor Fabián Eli MD & M ABHISHEK Jay Estimated Blood Loss 100 Findings Consistent with Post-Op Diagnosis Consistent with post op diagnosis. Specimens No specimens Description of Procedure I participated in prepping dressing and assisted Dr. Vital during the procedure. Please see Dr. Vital note. I attest to the content of the Intraoperative Record and any orders documented therein. Any exceptions are noted below. Supervising Physician Co-Signing Physician Notes Dr. Vital
[2021-12-24] MEDS ORDERED: IBUPROFEN 200 MG PO PRN (17:07)
[2021-12-24] MEDS ORDERED: ENOXAPARIN INJ 40 MG/0.4 ML SYR SQ SCH (17:15)
[2021-12-24] MEDS ORDERED: SODIUM CHLORIDE 0.9% 1000ML 1,000 ML IV SCH (17:15)
[2021-12-24] MEDS ORDERED: IBUPROFEN 200 MG TAB PO PRN ×2 (17:28→18:19)
--- NOTE | 2021-12-24 17:28 | Anesthesiology Progress Note ---
Date of Service December 24, 2021 Anesthesia Post Procedure Vital Signs Vital Signs: Temp Pulse Pulse Resp BP Pulse Ox 12/24/21 17:15 76 14 148/91 H 95 12/24/21 17:05 77 14 118/94 98 12/24/21 16:55 36.6 C 79 16 123/87 96 12/24/21 12:14 36.7 C 77 20 163/99 H 98 Transfer of Care Handoff Completed per policy Notes Mental Status: alert / awake / arousable Patient Amnestic to Procedure: Yes Nausea / Vomiting: adequately controlled Pain: adequately controlled Airway Patency, RR, SpO2: stable & adequate BP & HR: stable & adequate Hydration State: stable & adequate Neuraxial Anesthesia: was administered and sensory block is resolving Anesthetic Complications: no major complications apparent and Pt Satisfied with anesthetic care
[2021-12-24] MEDS: Scopolamine CHECK PATCH PLACEMENT SCH ×2 (18:14→23:28)
[2021-12-24] MEDS ORDERED: ACETAMINOPHEN 325 MG TAB PO PRN (18:16)
--- NOTE | 2021-12-24 18:16 | XRay Report ---
LEFT KNEE 2 VIEWS History: Left total knee arthroplasty. Degenerative arthritis. Postop. FINDINGS: The patient is status post a left total knee arthroplasty. The hardware is intact. No fract ure or dislocation. IMPRESSION: Left total knee arthroplasty. No evidence for hardware complication. ACT 112: Negative or not required by law. Electronically signed by: Jesus Hooper M.D. 12/24/2021 6:14 PM
[2021-12-24 19:17] LABS: INR 1.1 (0.9-1.1); Prothrombin Time 11.3 Seconds (9.0-12.0)
[2021-12-24 19:36] LABS: Creatinine Clr Calc Pharmacy 103.8 ml/min; Est GFR (African American) 92.5 ml/min; Est GFR (Non-African American) 79.8 ml/min
[2021-12-24] MEDS: oxyCODONE HCL IR 5 MG TAB (IMMEDIATE RELEASE) PO PRN (20:30)
[2021-12-24] MEDS: DOCUSATE SODIUM 100 MG CAP PO SCH (20:31)
[2021-12-24] MEDS: ENOXAPARIN INJ 30 MG/0.3 ML SYR SQ SCH (20:31)
[2021-12-24] MEDS ORDERED: SIMVASTATIN 20 MG TAB PO SCH ×2 (21:00)
[2021-12-24] MEDS ORDERED: SENNA 8.6 MG TAB PO SCH (21:00)
[2021-12-24] MEDS: ceFAZolin 2000MG 2,000 MG/15 ML SYR IV SCH (23:28)
[2021-12-25] MEDS: oxyCODONE HCL IR 5 MG TAB (IMMEDIATE RELEASE) PO PRN ×3 (00:57→12:18)
[2021-12-25 05:55] LABS: Hematocrit (blood only) 36.2 % (37-47); Hemoglobin 12.5 g/dL (12.0-16.0); Mean Corpuscular Hemoglobin 30.4 pg (25-34); Mean Corpuscular Hgb Conc 34.5 g/dL (32-36); Mean Corpuscular Volume 88.1 fL (80-100); Mean Platelet Volume 9.9 fL (7.4-10.4); Platelet Count 213 K/uL (130-400); RDW Coefficient of Variation 14.6 % (11.5-14.5); RDW Standard Deviation 47.4 fL (36.4-46.3); Red Blood Count 4.11 M/uL (4.2-5.4); White Blood Count 11.61 K/uL (4.8-10.8)
[2021-12-25] MEDS: ENOXAPARIN INJ 30 MG/0.3 ML SYR SQ SCH (06:17)
[2021-12-25] MEDS: ceFAZolin 2000MG 2,000 MG/15 ML SYR IV SCH (06:17)
[2021-12-25 06:18] LABS: BUN Creatinine Ratio 17.6 (10-20); Calcium 8.7 mg/dl (8.5-10.1); Creatinine Clr Calc Pharmacy 95.3 ml/min; Est GFR (African American) 83.3 ml/min; Est GFR (Non-African American) 71.9 ml/min; Potassium 3.7 mmol/L (3.5-5.1)
[2021-12-25] MEDS: DOCUSATE SODIUM 100 MG CAP PO SCH (07:40)
[2021-12-25] MEDS: Scopolamine CHECK PATCH PLACEMENT SCH (07:44)
[2021-12-25] MEDS ORDERED: FERROUS GLUCONATE 324 MG TAB PO SCH (08:00)
[2021-12-25] MEDS ORDERED: ASCORBIC ACID 500 MG TAB PO SCH (08:00)
[2021-12-25] MEDS ORDERED: LISINOPRIL/HCTZ 20/25MG 1 TAB PO SCH ×2 (09:00)
[2021-12-25] MEDS ORDERED: METOPROLOL SUCC 50MG EXT REL TAB PO SCH ×2 (09:00)
[2021-12-25] MEDS ORDERED: CHOLECALCIFEROL 1,000 UNITS 25 MCG TAB PO SCH ×2 (09:00)
[2021-12-25] MEDS ORDERED: MULTIVITAMIN TAB PO SCH (09:00)
[2021-12-25] MEDS ORDERED: LEVOTHYROXINE SODIUM 137 MCG TABLET PO SCH ×2 (09:00)
--- NOTE | 2021-12-25 09:25 | Orthopedic Progress Note ---
Date of Service December 25, 2021 Assessment & Plan (1) Arthritis of knee, left: Plan: POD #0 s/p Left TKA, doing as well as expected. Regular diet. WBAT with walker. OOB to chair. Continue pain control. DVT prophylaxis: TEDs 3 weeks, foot pumps while in hospital, Lovenox 30 mg Subq x 3 weeks followed by ASA 325 mg BID for 3 weeks. PT/OT. Will re-check in the afternoon and if stable for discharge will change dressing. D/C planning. Present on Admission?: Yes Admission and Anticipated Discharge Date Admission Date: December 24, 2021 Subjective Left knee pain Review of Systems Review of Systems: All systems reviewed & are unremarkable except as noted in HPI & below Physical Exam Physical Exam: LLE: Dressing clean,dry,intact. Neurovascularly intact. Results & Data ([facility]) Vital Signs (Past 12 Hours) Vital Signs Temp Pulse Resp BP Pulse Ox 12/25/21 07:19 36.8 C 72 18 126/78 91 12/25/21 02:05 37 C 81 16 123/79 93 Laboratory Results 12/25/21 12/25/21 12/24/21 Range/Units 04:58 04:58 Unknown WBC 11.61 H (4.8-10.8) K/uL RBC 4.11 L (4.2-5.4) M/uL Hgb 12.5 (12.0-16.0) g/dL Hct 36.2 L (37-47) % MCV 88.1 (80-100) fL MCH 30.4 (25-34) pg MCHC 34.5 (32-36) g/dL RDW Std Deviation 47.4 H (36.4-46.3) fL RDW Coeff of Dorothea 14.6 H (11.5-14.5) % Plt Count 213 (130-400) K/uL MPV 9.9 (7.4-10.4) fL PT (9.0-12.0) Seconds INR (0.9-1.1) Sodium 135 L (136-145) mmol/L Potassium 3.7 (3.5-5.1) mmol/L Chloride 100 (98-107) mmol/L Carbon Dioxide 27 (21-32) mmol/L Anion Gap 8 (3-11) BUN 15 (6-23) mg/dl Creatinine 0.85 (0.6-1.2) mg/dl Est Cr Clr Drug Dosing 95.3 ml/min Est GFR ( Amer) 83.3 ml/min Est GFR (Non-Af Amer) 71.9 ml/min BUN/Creatinine Ratio 17.6 (10-20) Glucose 147 H (70-99(Fasting)) mg/dl Calcium 8.7 (8.5-10.1) mg/dl SARS-CoV-2, RNA, NAAT NEGATIVE (NEGATIVE) 12/24/21 12/24/21 Range/Units 18:58 18:58 WBC (4.8-10.8) K/uL RBC (4.2-5.4) M/uL Hgb (12.0-16.0) g/dL Hct (37-47) % MCV (80-100) fL MCH (25-34) pg MCHC (32-36) g/dL RDW Std Deviation (36.4-46.3) fL RDW Coeff of Dorothea (11.5-14.5) % Plt Count (130-400) K/uL MPV (7.4-10.4) fL PT 11.3 (9.0-12.0) Seconds INR 1.1 (0.9-1.1) Sodium (136-145) mmol/L Potassium (3.5-5.1) mmol/L Chloride (98-107) mmol/L Carbon Dioxide (21-32) mmol/L Anion Gap (3-11) BUN (6-23) mg/dl Creatinine 0.78 (0.6-1.2) mg/dl Est Cr Clr Drug Dosing 103.8 ml/min Est GFR ( Amer) 92.5 ml/min Est GFR (Non-Af Amer) 79.8 ml/min BUN/Creatinine Ratio (10-20) Glucose (70-99(Fasting)) mg/dl Calcium (8.5-10.1) mg/dl SARS-CoV-2, RNA, NAAT (NEGATIVE) Diagnostic Findings Post-op AP & Lateral left knee showed evidence of cemented TKA.
--- NOTE | 2021-12-25 12:07 | Communication Note ---
Date of Service: December 25, 2021 Briefly stopped in to see the patient. Doing well. On home meds. See no medical need to keep her in the hospital. Discharge per orthopedic service. Given medical stability, Hospital Medicine team will sign off. Please re-consult with any questions or concerns. Thank you for letting us assist in the care of this patient!
== END 2021-12-25 16:30 | disposition home health service (06) ==
LOC: 3E 11:40 → ASU 11:40
DX: I10 Essential (primary) hypertension; M17.12 Unilateral primary osteoarthritis, left knee; E03.9 Hypothyroidism, unspecified; Z88.6 Allergy status to analgesic agent; E78.5 Hyperlipidemia, unspecified; Z79.899 Other long term (current) drug therapy

== ENCOUNTER 2022-06-12 15:29 | Inpatient (IN) ==
[2022-06-12] MEDS ORDERED: SODIUM CHLORIDE 0.9% 1000ML 1,000 ML IV ONE ×2 (16:05→17:24)
--- NOTE | 2022-06-12 16:11 | Emergency Department Note ---
Impression & Plan Sepsis, Neutropenia, Acute hypotension, Elevated lactic acid level ED Provider Note NAME: NOELLE BECK AGE: 66 SEX: F : 1955 ARRIVES VIA: Walk-In INFORMANT: Patient ED PROVIDER(S): Jose Miguel Hdz DO CHIEF COMPLAINT: weak HPI: Patient is a 66-year-old female with a past medical history of ARTEAGA, breast cancer, hypothyroidism, hypertension, CAD and hyperlipidemia that presents to the ER referred in from the cancer center for hypertension. She went there as she had an upset stomach was not feeling well. She was having diarrhea and some abdominal pain along with diffuse pain throughout her whole body. She received the shot on Thursday as well as her first dose of chemo. She she notes about 20 hours after discharge started having diffuse pain. She has had some increased urinary frequency. Outside that she has been feeling lightheaded with up and moving around. No other exacerbating or remitting factors. ROS: See above HPI for pertinent positives & negatives. A total of 10 systems reviewed and were otherwise negative. PAST MEDICAL HISTORY:See Below PAST SURGICAL HISTORY:See Below FAMILY HISTORY:See Below SOCIAL HISTORY:See Below HOME MEDICATIONS:See Below ALLERGIES:See Below VITALS:See Below PHYSICAL EXAMINATION: GENERAL: Sitting up in bed, alert, ill-appearing, disheveled EYE EXAM: normal conjunctiva. OROPHARYNX: mucous membranes are dry NECK: supple, no nuchal rigidity, no adenopathy, non-tender LUNGS: Clear to auscultation. Normal chest wall mechanics HEART: no murmurs, S1 normal and S2 normal ABDOMEN: abdomen soft, non-tender, normo-active bowel sounds, no masses, no rebound or guarding. UPPER EXTREMITIES: upper extremities are grossly normal. LOWER EXTREMITIES: No pitting edema. NEURO EXAM: Normal sensorium, cranial nerves II-XII grossly intact, normal speech, no gross weakness of arms, no gross weakness of legs. MEDICAL DECISION MAKING: Patient is a 66-year-old for weakness as well as hypotension. Sent over from cancer clinic following receiving 2 L of IV fluids. She was still slightly hypotensive with systolics in the 70s here. IV was established blood work was obtained. Labs show leukopenia at 1. Mild thrombocytopenia at 124. Absolute neutropenia was severe at 170. INR 1.2. BMP with a creatinine of 1.8. Lactate was elevated at 2.7. Troponin was elevated. Pro-Dg elevated at nearly 4. UA declots obtained but was eventually obtained and negative. Patient again was given 2 L of normal saline just prior to arrival and consequently I gave her additional liter here for a total of 3 L. She was given IV cefepime. COVID was negative. CT abdomen pelvis showed no acute pathology. She was updated bedside discussed with hospitalist admitted for further work-up. Systolic pressures improved from the 70s up to the low 100s. Triage Nursing notes reviewed. Limited review of prior medical records performed Vital Signs: reviewed and remarkable for hypotension Differential diagnosis: Infection, dehydration, metabolic abnormality, hypo/hyperglycemia, electrolyte disturbance, anemia, hypoxia, cardiac sources, intracerebral event, toxicologic, neurologic, as well as other pathologies. ER treatment provided: See below Diagnostics interpreted by me: ECG: Sinus tachycardia rate of 100 Normal axis No PVCs QTC 433 Cardiac Monitoring: An order was placed for continuous cardiac monitoring. The monitor shows a rate of 98 with sinus rhythm. Laboratory studies: As stated above and show below. Imaging studies: CT abdomen pelvis as described above Consultation(s): D/w Dr. Up Procedures: none Critical Care: I have personally spent 32 minutes of critical care time in the direct management of this patient. This includes bedside care, interpretation of diagnostic studies, and testing, discussion with consultants, patient, and family members, and other required patient management activities. This 32 minutes is in excess of all separately billable procedures. Past Med/Surg History Medical History (Updated 06/12/22 @ 21:59 by Jose Miguel Hdz DO) Breast cancer, right dx 01/2022 s/p Rt lumpectomy Carotid artery disease There is mild to moderate echogenic atherosclerotic plaque present. No evidence of hemodynamically significant carotid stenosis-02/2020 carotid doppler GERD (gastroesophageal reflux disease) controlled, stable per pt History of basal cell carcinoma nose s/p Moh's Hyperlipidemia Hypertension controlled, stable per pt Hypothyroidism Morbid obesity with BMI of 45.0-49.9, adult Osteoarthritis Ureteral stone To follow-up with urology, monitoring Surgical History (Updated 06/04/22 @ 09:49 by Ana Stover RN) Family history of reaction to anesthesia Mother > nausea H/O total thyroidectomy D/t thyroid nodule History of colonoscopy History of hysterectomy History of knee replacement Left History of partial mastectomy of right breast 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 Perla Marin at [facility] History of right breast biopsy History of surgery on arm right wrist and elbow nerve transposition PONV (postoperative nausea and vomiting) Port-A-Cath in place (06/04/22) Insertion Access Port with Fluoroscopy(Left) - Gold Mitchell, DO, FACS Status post breast lumpectomy left breast (benign) Status post Mohs surgery Family History Mother Hypertension Kidney stones Father Prostate cancer, Onset Age: 58 Brother No problems noted. Sister No problems noted. Son No problems noted. Son No problems noted. Son No problems noted. Denies family history of Ovarian cancer Breast cancer Colorectal cancer Social History Smoking Status: Never smoker Second Hand Exposure: Yes (as child); Hx Alcohol Use: Yes Alcohol type: hard liquor Alcohol type Comment: social Alcohol Intake Frequency Comment: 1 every couple of months Hx Substance Use: No Preferred Language: [place] African Communication Ability: Effective Visual Impairment: Limited Hearing Ability: Normal School Psychology Specialist Required: No Beliefs That Will Affect Care: None marital status: Current Living Situation: Spouse current occupational status: retired current occupation: Retired from [employer] How many Children do You have: 3 Feels Safe at Home: Yes Childhood Exposure to Second-Hand Smoke: Yes caffeine: Yes (soda) during the past year weight has: remained stable Dental Care, Regularly: Yes Seatbelt Use: always Assistive Devices: Glasses Allergies Allergies Allergy/AdvReac Type Severity Reaction Status Date / Time diclofenac Allergy Severe Anaphylaxis Verified 06/12/22 16:14 Home Meds Home Medications Medication Instructions Recorded Confirmed lisinopril 20 1 tab PO QAM 09/23/21 06/12/22 mg-hydrochlorothiazide 25 mg tablet multivitamin 1 tab PO DAILY 04/24/22 06/12/22 polyethylene glycol 3350 17 17 g PO DAILY PRN Constipation 04/24/22 06/12/22 gram/dose oral powder (Miralax) pot bicarb 344 mg-sod bicarb 1,050 1 tab PO Q4H PRN Gi Upset 04/24/22 06/12/22 mg-citric acid 1,000 mg efferv tab ([place]) Previous Rx's Medication Instructions Recorded simvastatin 20 mg tablet 20 mg PO HS #90 tabs 08/19/21 metoprolol succinate 50 mg 50 mg PO DAILY #90 tabs 12/18/21 tablet,extended release 24 hr levothyroxine 137 mcg tablet 137 mcg PO QAM #90 tabs 05/20/22 Results & Data (ED) Vital Signs Vital Signs - 24 hr 06/12/22 15:30 06/12/22 15:47 06/12/22 16:26 Temperature 36.8 C Temperature Source Temporal Artery Scan Pulse Rate 109 H 97 H Pulse Rate [Left] 100 H Respiratory Rate 20 18 18 Respiratory Effort / Characteristics Non-Labored Spontaneous Non-Labored Respiratory Depth Normal Normal Respiratory Pattern Regular Blood Pressure 75/48 L Blood Pressure [Left Arm] 87/65 L Blood Pressure Mean 57 Blood Pressure Mean [Left Arm] 72 Blood Pressure Position [Left Arm] Lying Pulse Oximetry 97 93 94 Oxygen Delivery Method Room Air Room Air Room Air Sepsis Recent Fever Within 48 Hours No Sepsis New/Unexplained Change in Mental Status No Sepsis Action Taken by Nursing No Action Required 06/12/22 16:26 06/12/22 16:28 06/12/22 16:45 Temperature Temperature Source Pulse Rate Pulse Rate [Left] 94 H Respiratory Rate 18 Respiratory Effort / Characteristics Non-Labored Spontaneous Respiratory Depth Respiratory Pattern Blood Pressure Blood Pressure [Left Arm] 104/69 112/66 Blood Pressure Mean Blood Pressure Mean [Left Arm] 80 81 Blood Pressure Position [Left Arm] Semi-fowlers Pulse Oximetry 94 92 Oxygen Delivery Method Room Air Room Air Sepsis Recent Fever Within 48 Hours Sepsis New/Unexplained Change in Mental Status Sepsis Action Taken by Nursing 06/12/22 17:15 Temperature Temperature Source Pulse Rate Pulse Rate [Left] 92 H Respiratory Rate 18 Respiratory Effort / Characteristics Respiratory Depth Respiratory Pattern Blood Pressure Blood Pressure [Left Arm] 121/74 Blood Pressure Mean Blood Pressure Mean [Left Arm] 89 Blood Pressure Position [Left Arm] Pulse Oximetry 94 Oxygen Delivery Method Sepsis Recent Fever Within 48 Hours Sepsis New/Unexplained Change in Mental Status Sepsis Action Taken by Nursing Laboratory Data Result diagrams: 06/12/22 16:06 06/12/22 16:20 Lab Results 06/12/22 06/12/22 06/12/22 Range/Units 16:06 16:06 16:18 WBC 1.40 L (4.8-10.8) K/ul RBC 4.28 (3.93-5.22) M/uL Hgb 12.1 (12.0-16.0) g/dl Hct 36.6 (34.1-44.9) % MCV 85.5 (80.0-100.0) fL MCH 28.3 (25.0-34.0) pg MCHC 33.1 (32.0-36.0) g/dL RDW Std Deviation 45.9 (36.4-46.3) fL RDW Coeff of Dorothea 14.6 H (11.5-14.5) % Plt Count 124 L (130-400) K/uL MPV 11.0 (9.4-12.3) fL Neutrophils % (Manual) 12 % Lymphocytes % (Manual) 38 % Monocytes % (Manual) 38 % Eosinophils % (Manual) 1 % Metamyelocytes % (Man) 7 % Myelocytes % (Man) 4 % Neutrophils # (Manual) 0.17 L (1.4-6.5) K/uL Total Absolute Neuts 0.17 L* (1.4-6.5) K/uL Lymphocytes # (Manual) 0.53 L (1.2-3.4) K/uL Total Abs Lymphocytes 0.53 L (1.2-3.4) K/uL Monocytes # (Manual) 0.53 (0.24-0.82) K/uL Eosinophils # (Manual) 0.01 (0-0.50) K/uL Metamyelocytes # (Man) 0.10 H (0-0) K/uL Myelocytes # (Manual) 0.06 H (0-0) K/uL Toxic Granulation 1+ Dohle Bodies 1+ PT 12.9 H (9.0-12.0) Seconds INR 1.2 H (0.9-1.1) APTT 78.7 H* (21.0-31.0) Seconds PTT Ratio 2.9 Sodium (136-145) mmol/L Potassium (3.5-5.1) mmol/L Chloride (98-107) mmol/L Carbon Dioxide (21-32) mmol/L Anion Gap (3-11) BUN (6-23) mg/dl Creatinine (0.6-1.2) mg/dl Est Cr Clr Drug Dosing Est GFR ( Amer) ml/min Est GFR (Non-Af Amer) ml/min BUN/Creatinine Ratio (10-20) Glucose (70-99(Fasting)) mg/dl Lactate (0.4-2.0) mmol/L Calcium (8.5-10.1) mg/dl Magnesium (1.7-2.4) mg/dl Total Bilirubin (0.2-1.0) mg/dl AST (13-39) U/L ALT (7-52) U/L Alkaline Phosphatase (34-104) U/L Troponin I High Sens (0-14) pg/ml Total Protein (6.0-8.3) gm/dl Albumin (3.4-5.0) gm/dl Globulin (2.5-4.0) gm/dl Albumin/Globulin Ratio (0.9-2) Procalcitonin (0-0.5) ng/ml Urine Color Urine Appearance (Clear) Urine pH (4.5-7.5) Ur Specific Reese (1.000-1.030) Urine Protein (Negative) Urine Glucose (UA) (Negative) Urine Ketones (Negative) Urine Blood (Negative) Urine Nitrite (Negative) Urine Bilirubin (Negative) Urine Urobilinogen (Negative) Ur Leukocyte Esterase (Negative) Urine WBC (Auto) (0-5) /hpf Urine RBC (Auto) (0-4) /hpf U Hyaline Cast (Auto) (0-5) /lpf U Epithel Cells (Auto) (0-5) /lpf Urine Bacteria (Auto) (Negative) SARS-CoV-2, RNA, NAAT NEGATIVE (NEGATIVE) 06/12/22 06/12/22 06/12/22 Range/Units 16:20 16:20 16:20 WBC (4.8-10.8) K/ul RBC (3.93-5.22) M/uL Hgb (12.0-16.0) g/dl Hct (34.1-44.9) % MCV (80.0-100.0) fL MCH (25.0-34.0) pg MCHC (32.0-36.0) g/dL RDW Std Deviation (36.4-46.3) fL RDW Coeff of Dorothea (11.5-14.5) % Plt Count (130-400) K/uL MPV (9.4-12.3) fL Neutrophils % (Manual) % Lymphocytes % (Manual) % Monocytes % (Manual) % Eosinophils % (Manual) % Metamyelocytes % (Man) % Myelocytes % (Man) % Neutrophils # (Manual) (1.4-6.5) K/uL Total Absolute Neuts (1.4-6.5) K/uL Lymphocytes # (Manual) (1.2-3.4) K/uL Total Abs Lymphocytes (1.2-3.4) K/uL Monocytes # (Manual) (0.24-0.82) K/uL Eosinophils # (Manual) (0-0.50) K/uL Metamyelocytes # (Man) (0-0) K/uL Myelocytes # (Manual) (0-0) K/uL Toxic Granulation Dohle Bodies PT (9.0-12.0) Seconds INR (0.9-1.1) APTT (21.0-31.0) Seconds PTT Ratio Sodium 132 L (136-145) mmol/L Potassium 3.8 (3.5-5.1) mmol/L Chloride 96 L (98-107) mmol/L Carbon Dioxide 25 (21-32) mmol/L Anion Gap 11 (3-11) BUN 30 H (6-23) mg/dl Creatinine 1.89 H (0.6-1.2) mg/dl Est Cr Clr Drug Dosing Not Reportable Est GFR ( Amer) 31.7 ml/min Est GFR (Non-Af Amer) 27.4 ml/min BUN/Creatinine Ratio 15.9 (10-20) Glucose 172 H (70-99(Fasting)) mg/dl Lactate 2.7 H* (0.4-2.0) mmol/L Calcium 8.5 (8.5-10.1) mg/dl Magnesium 2.0 (1.7-2.4) mg/dl Total Bilirubin 1.3 H (0.2-1.0) mg/dl AST 11 L (13-39) U/L ALT 20 (7-52) U/L Alkaline Phosphatase 64 (34-104) U/L Troponin I High Sens 36.7 H (0-14) pg/ml Total Protein 6.0 (6.0-8.3) gm/dl Albumin 3.4 (3.4-5.0) gm/dl Globulin 2.6 (2.5-4.0) gm/dl Albumin/Globulin Ratio 1.3 (0.9-2) Procalcitonin 3.98 H (0-0.5) ng/ml Urine Color Urine Appearance (Clear) Urine pH (4.5-7.5) Ur Specific Reese (1.000-1.030) Urine Protein (Negative) Urine Glucose (UA) (Negative) Urine Ketones (Negative) Urine Blood (Negative) Urine Nitrite (Negative) Urine Bilirubin (Negative) Urine Urobilinogen (Negative) Ur Leukocyte Esterase (Negative) Urine WBC (Auto) (0-5) /hpf Urine RBC (Auto) (0-4) /hpf U Hyaline Cast (Auto) (0-5) /lpf U Epithel Cells (Auto) (0-5) /lpf Urine Bacteria (Auto) (Negative) SARS-CoV-2, RNA, NAAT (NEGATIVE) 06/12/22 06/12/22 Range/Units 18:23 18:41 WBC (4.8-10.8) K/ul RBC (3.93-5.22) M/uL Hgb (12.0-16.0) g/dl Hct (34.1-44.9) % MCV (80.0-100.0) fL MCH (25.0-34.0) pg MCHC (32.0-36.0) g/dL RDW Std Deviation (36.4-46.3) fL RDW Coeff of Dorothea (11.5-14.5) % Plt Count (130-400) K/uL MPV (9.4-12.3) fL Neutrophils % (Manual) % Lymphocytes % (Manual) % Monocytes % (Manual) % Eosinophils % (Manual) % Metamyelocytes % (Man) % Myelocytes % (Man) % Neutrophils # (Manual) (1.4-6.5) K/uL Total Absolute Neuts (1.4-6.5) K/uL Lymphocytes # (Manual) (1.2-3.4) K/uL Total Abs Lymphocytes (1.2-3.4) K/uL Monocytes # (Manual) (0.24-0.82) K/uL Eosinophils # (Manual) (0-0.50) K/uL Metamyelocytes # (Man) (0-0) K/uL Myelocytes # (Manual) (0-0) K/uL Toxic Granulation Dohle Bodies PT (9.0-12.0) Seconds INR (0.9-1.1) APTT (21.0-31.0) Seconds PTT Ratio Sodium (136-145) mmol/L Potassium (3.5-5.1) mmol/L Chloride (98-107) mmol/L Carbon Dioxide (21-32) mmol/L Anion Gap (3-11) BUN (6-23) mg/dl Creatinine (0.6-1.2) mg/dl Est Cr Clr Drug Dosing Est GFR ( Amer) ml/min Est GFR (Non-Af Amer) ml/min BUN/Creatinine Ratio (10-20) Glucose (70-99(Fasting)) mg/dl Lactate 3.0 H* (0.4-2.0) mmol/L Calcium (8.5-10.1) mg/dl Magnesium (1.7-2.4) mg/dl Total Bilirubin (0.2-1.0) mg/dl AST (13-39) U/L ALT (7-52) U/L Alkaline Phosphatase (34-104) U/L Troponin I High Sens (0-14) pg/ml Total Protein (6.0-8.3) gm/dl Albumin (3.4-5.0) gm/dl Globulin (2.5-4.0) gm/dl Albumin/Globulin Ratio (0.9-2) Procalcitonin (0-0.5) ng/ml Urine Color Yellow Urine Appearance Clear (Clear) Urine pH 5.5 (4.5-7.5) Ur Specific Reese 1.013 (1.000-1.030) Urine Protein Trace H (Negative) Urine Glucose (UA) Negative (Negative) Urine Ketones Negative (Negative) Urine Blood Trace H (Negative) Urine Nitrite Negative (Negative) Urine Bilirubin Negative (Negative) Urine Urobilinogen Negative (Negative) Ur Leukocyte Esterase Negative (Negative) Urine WBC (Auto) 1-5 (0-5) /hpf Urine RBC (Auto) 0-4 (0-4) /hpf U Hyaline Cast (Auto) 10-30 H (0-5) /lpf U Epithel Cells (Auto) >30 H (0-5) /lpf Urine Bacteria (Auto) Negative (Negative) SARS-CoV-2, RNA, NAAT (NEGATIVE) Administered Medications Discontinued Medications Sodium Chloride (Nss 1000ml) 1,000 mls @ 999 mls/hr IV .Q1H1M ONE Stop: 06/12/22 17:05 Last Infusion: 06/12/22 17:45 Dose: 0 mls/hr Documented By: Admin: 06/12/22 16:19 Dose: 999 mls/hr Documented By: JOSE Sodium Chloride (Nss 1000ml) 1,000 mls @ 999 mls/hr IV .Q1H1M ONE Stop: 06/12/22 18:24 Last Admin: 06/12/22 18:06 Dose: Not Given Documented By: SHIN Cefepime HCl (Maxipime) 2,000 mg in 20 mls @ 5 mls/min IV NOW STA; Protocol Stop: 06/12/22 17:56 Last Admin: 06/12/22 18:25 Dose: 5 mls/min Documented By: SHIN Vancomycin HCl 2,750 mg/ (Sodium Chloride) 555 mls @ 200 mls/hr IV NOW ONE Stop: 06/12/22 21:46 Last Admin: 06/12/22 20:12 Dose: 200 mls/hr Documented By: MITCHELL Famotidine 20 mg/ Syringe 5 mls @ 2.5 mls/min IV ONE STA Stop: 06/12/22 18:56 Last Admin: 06/12/22 20:10 Dose: 2.5 mls/min Documented By: MITCHELL Imaging Data Radiologist's Impression: Chest X-Ray 06/12/22 16:06 XR chest 1V portable CLINICAL HISTORY: SEPSIS COMPARISON STUDY: Chest CT September 22, 2020. Chest radiograph June 04, 2022. FINDINGS: Left internal jugular [id number] is in place. There is no pneumothorax or pleural effusion. No consolidation is identified. Mild cardiomegaly is unchanged. Pulmonary vascular congestion with possible mild pulmonary edema has developed. IMPRESSION: Mild cardiomegaly. Interval development of pulmonary vascular congestion with possible mild pulmonary edema. ACT 112: Negative or not required by law. Electronically signed by: Andres Daugherty M.D. 06/12/2022 4:29 PM Abdomen/Pelvis CT 06/12/22 16:58 CT OF THE ABDOMEN AND PELVIS WITHOUT CONTRAST CLINICAL HISTORY: Abdominal pain and diarrhea. Breast cancer. COMPARISON STUDY: CT of the abdomen and pelvis September 22, 2020. TECHNIQUE: Axial images of the abdomen and pelvis were obtained without IV contrast. Images were reviewed in the axial, sagittal, and coronal planes. Automated exposure control was utilized for the study. A dose lowering technique was utilized adhering to the principles of ALARA. FINDINGS: No pneumatosis, free air or portal venous gas is present. Evaluation of the abdomen and pelvis is suboptimal on this unenhanced exam. There is hepatic steatosis. Low-attenuation bilateral adrenal nodules were present on CT of September 22, 2020. These are benign. There is focal mild scarring within the midpole of the left kidney, unchanged. No urinary calculi are present. There is no hydronephrosis. Unenhanced images of the spleen and pancreas are unremarkable. There is no biliary or pancreatic ductal dilatation. No abdominal or pelvic lymphadenopathy is present. There is no evidence for a bowel obstruction. Colonic diverticulosis is noted without evidence for acute diverticulitis. The appendix is normal. Apparent mild diffuse colonic wall thickening is likely due to underdistention. No suspicious lesions within the visualized skeletal structures. Uterus is surgically absent. There is no ascites. IMPRESSION: 1. No bowel obstruction. Normal appendix. 2. Apparent mild diffuse colonic wall thickening. This is likely due to underdistention however a mild nonspecific colitis could appear similar. 3. Hepatic steatosis. 4. No urinary calculi or hydronephrosis. ACT 112: Negative or not required by law. Electronically signed by: Andres Daugherty M.D. 06/12/2022 5:44 PM Discharge Plan Visit Data Chief Complaint: Abnormal Labs/Diagnostic Testing Stated Complaint: LOW BP, REF BY ED Provider: Jose Miguel Hdz Discharge Problem: Sepsis, Neutropenia, Acute hypotension, Elevated lactic acid level Patient Disposition: Admitted As Inpatient Discharge Instructions Interventions: ED Discharge Assessment Last Done: 06/12/22 21:26
--- NOTE | 2022-06-12 16:31 | XRay Report ---
XR chest 1V portable CLINICAL HISTORY: SEPSIS COMPARISON STUDY: Chest CT September 22, 2020. Chest radiograph June 04, 2022. FINDINGS: Left internal jugular [id number] is in place. There is no pneumothorax or pleural effusi on. No consolidation is identified. Mild cardiomegaly is unchanged. Pulmonary vascular congestion wit h possible mild pulmonary edema has developed. IMPRESSION: Mild cardiomegaly. Interval development of pulmonary vascular congestion with possible m ild pulmonary edema. ACT 112: Negative or not required by law. Electronically signed by: Andres Daugherty M.D. 06/12/2022 4:29 PM
[2022-06-12 16:54] LABS: Alanine Aminotransferase 20 U/L (7-52); Albumin Globulin Ratio 1.3 (0.9-2); Albumin Level 3.4 gm/dl (3.4-5.0); Alkaline Phosphatase 64 U/L (34-104); Anion Gap 11 (3-11); Aspartate Aminotransferase 11 U/L (13-39); BUN Creatinine Ratio 15.9 (10-20); Bilirubin,Total 1.3 mg/dl (0.2-1.0); Blood Urea Nitrogen 30 mg/dl (6-23); Calcium 8.5 mg/dl (8.5-10.1); Carbon Dioxide 25 mmol/L (21-32); Chloride 96 mmol/L (98-107); Est GFR (African American) 31.7 ml/min; Est GFR (Non-African American) 27.4 ml/min; Globulin 2.6 gm/dl (2.5-4.0); Glucose 172 mg/dl (70-99(Fasting)); Potassium 3.8 mmol/L (3.5-5.1); Sodium 132 mmol/L (136-145)
[2022-06-12 16:56] LABS: Troponin I High Sensitivity 36.7 pg/ml (0-14)
[2022-06-12 17:04] LABS: INR 1.2 (0.9-1.1); Partial Thromboplastin Ratio 2.9; Prothrombin Time 12.9 Seconds (9.0-12.0)
[2022-06-12 17:22] LABS: Partial Thromboplastin Time 78.7 Seconds (21.0-31.0)
--- NOTE | 2022-06-12 17:46 | CT Scan Report ---
CT OF THE ABDOMEN AND PELVIS WITHOUT CONTRAST CLINICAL HISTORY: Abdominal pain and diarrhea. Breast cancer. COMPARISON STUDY: CT of the abdomen and pelvis September 22, 2020. TECHNIQUE: Axial images of the abdomen and pelvis were obtained without IV contrast. Images were revi ewed in the axial, sagittal, and coronal planes. Automated exposure control was utilized for the mary dy. A dose lowering technique was utilized adhering to the principles of ALARA. FINDINGS: No pneumatosis, free air or portal venous gas is present. Evaluation of the abdomen and pel vis is suboptimal on this unenhanced exam. There is hepatic steatosis. Low-attenuation bilateral adre nal nodules were present on CT of September 22, 2020. These are benign. There is focal mild scarring w ithin the midpole of the left kidney, unchanged. No urinary calculi are present. There is no hydronep hrosis. Unenhanced images of the spleen and pancreas are unremarkable. There is no biliary or pancrea tic ductal dilatation. No abdominal or pelvic lymphadenopathy is present. There is no evidence for a bowel obstruction. Colonic diverticulosis is noted without evidence for acute diverticulitis. The abbie endix is normal. Apparent mild diffuse colonic wall thickening is likely due to underdistention. No s uspicious lesions within the visualized skeletal structures. Uterus is surgically absent. There is no ascites. IMPRESSION: 1. No bowel obstruction. Normal appendix. 2. Apparent mild diffuse colonic wall thickening. This is likely due to underdistention however a mil d nonspecific colitis could appear similar. 3. Hepatic steatosis. 4. No urinary calculi or hydronephrosis. ACT 112: Negative or not required by law. Electronically signed by: Andres Daugherty M.D. 06/12/2022 5:44 PM
[2022-06-12 17:53] LABS: Hematocrit (blood only) 36.6 % (34.1-44.9); Hemoglobin 12.1 g/dl (12.0-16.0); Mean Corpuscular Hemoglobin 28.3 pg (25.0-34.0); Mean Corpuscular Hgb Conc 33.1 g/dL (32.0-36.0); Mean Corpuscular Volume 85.5 fL (80.0-100.0); Platelet Count 124 K/uL (130-400); RDW Coefficient of Variation 14.6 % (11.5-14.5); RDW Standard Deviation 45.9 fL (36.4-46.3); Red Blood Count 4.28 M/uL (3.93-5.22)
[2022-06-12] MEDS ORDERED: CEFEPIME 2,000 MG/20 ML VIAL IV STA (17:53)
[2022-06-12 17:55] LABS: ALC (manual) 0.53 K/uL (1.2-3.4); ANC (manual) 0.17 K/uL (1.4-6.5); Dohle Bodies 1+; Eosinophils # (manual) 0.01 K/uL (0-0.50); Eosinophils % (manual) 1 %; Lymphocytes # (manual) 0.53 K/uL (1.2-3.4); Lymphocytes % (manual) 38 %; Metamyelocytes % (manual) 7 %; Monocytes # (manual) 0.53 K/uL (0.24-0.82); Monocytes % (manual) 38 %; Myelocytes # (manual) 0.06 K/uL (0-0); Myelocytes % (manual) 4 %; Neutrophils # (manual) 0.17 K/uL (1.4-6.5); Neutrophils % (manual) 12 %; Toxic Granulation 1+
[2022-06-12] MEDS ORDERED: VANCOMYCIN CONSULT ACTIVE PRN (18:44)
--- NOTE | 2022-06-12 18:51 | History & Physical Report ---
Date of Service June 12, 2022 Assessment & Plan (1) Hypotension: Plan: ?due to diarrhea with chemotherapy in setting of antihypertensive use +/- infection. Improved with IV fluids alone. Need to rule out infective causes especially with elevated procalcitonin with blood and urine cultures. No definitive infective source but urinary frequency and one episode of dysuria concerning for UTI - broad spectrum antibiotics as below below Will get AM cortisol, consider random level if BP drops again overnight Continue LR @ 80ml/hr overnight Hold lisinopril/HCTZ and metoprolol. Likely can restart metoprolol if BP stable tomorrow. (2) UTI (urinary tract infection): Plan: UA pending at time of admission but urinary frequency and dysuria concerning for this in setting of hypotension and neutropenia. No CVA tenderness on exam Cefepime given in the ER, will add vancomycin for broad spectrum coverage pending urine and blood cultures. (3) Neutropenia: Plan: Secondary to antineoplastic therapy Discussed with Dr Lacey and in setting of suspected infective etiology recommend Neupogen 480 mcg SQ Neutropenic isolation precautions (4) Diarrhea: Plan: Suspect chemotherapy induced but given need to rule out infective causes will order stool PCR. (5) Gastritis: Plan: Suspected given epigastric pain on exam with recent steroid and Motrin use Famotidine 20mg IV now then pantoprazole 40mg PO daily (6) Elevated lactic acid level: Plan: Suspect due to hypoperfusion during hypotensive episode. Will repeat with AM labs and expect to improve. (7) Breast cancer, right: Plan: dx 01/2022 s/p Rt lumpectomy Started on docetaxel/cyclophosphamide last week Plan VTE Prophylaxis - heparin 7500 SQ q8h Diet - regular Disposition - admit to med/tele Admission and Anticipated Discharge Date Admission Date: June 12, 2022 History of Present Illness Chief Complaint: Hypotension Primary Care Provider: Neal Urrutia MD Abbie Leslie is a 66 year old female with right sided breast cancer sent [facility] due to hypotension. She reports dizziness, mild headache, diarrhea, generalized weakness, pain in her hands and feet and epigastric pain since starting on chemotherapy on Thursday. Per last oncology note she was started on docetaxel/cyclophosphamide. Reportedly she was also given Neulasta 2 days ago. She reports her main initial symptom was the pains in her legs and feet and not being able to walk. She was given prednisone and Motrin to help with this and these pains have been slowly getting better. However the diarrhea started next and she was concerned this was due to the prednisone so has since discontinued as of yesterday. The diarrhea has been occasionally bloody, very loose and watery - although she is yet to have a bowel movement today. She reports having mild GERD normal for which she takes intermittent Maalox however never had epigastric pain such as what she has had over the last two days and no prior known stomach ulcers. She currently has no epigastric pain except on palpation. She has also noted urinary frequency since the chemotherapy started and one episode of dysuria in the emergency room today. She denies any fever or chills. No upper respiratory symptoms. She had been taking all her usual blood pressure medications (lisinopril/HCTZ/metoprolol) during this time except for this morning when she was advised to stop by [facility]. [facility] due to all these symptoms and was given 2L IV fluids. Despite this her blood pressure remained low therefore was s ent to the ER for further workup. In the ER she was neutropenic with ANC 0.17. Procalcitonin was elevated at 3.98. Lactate elevated at 2.7. She was given an additional 1L IV NSS and cefepime 2g IV to cover for infective etiology. UA pending at time of admission. She was referred to medicine for admission and ongoing management of hypotension. Allergies Allergy/AdvReac Type Severity Reaction Status Date / Time diclofenac Allergy Severe Anaphylaxis Verified 06/12/22 16:14 Home Medications Medication Instructions Recorded Confirmed Type simvastatin 20 mg tablet 20 mg PO HS #90 tabs 08/19/21 06/12/22 Rx lisinopril 20 1 tab PO QAM 09/23/21 06/12/22 History mg-hydrochlorothiazide 25 mg tablet metoprolol succinate 50 mg 50 mg PO DAILY #90 tabs 12/18/21 06/12/22 Rx tablet,extended release 24 hr multivitamin 1 tab PO DAILY 04/24/22 06/12/22 History polyethylene glycol 3350 17 17 g PO DAILY PRN Constipation 04/24/22 06/12/22 History gram/dose oral powder (Miralax) pot bicarb 344 mg-sod bicarb 1,050 1 tab PO Q4H PRN Gi Upset 04/24/22 06/12/22 History mg-citric acid 1,000 mg efferv tab (Ruma-Mathews Gold) levothyroxine 137 mcg tablet 137 mcg PO QAM #90 tabs 05/20/22 06/12/22 Rx Past Med/Surg History Medical History (Updated 06/13/22 @ 07:07 by Tha Up MD) Breast cancer, right dx 01/2022 s/p Rt lumpectomy Carotid artery disease There is mild to moderate echogenic atherosclerotic plaque present. No evidence of hemodynamically significant carotid stenosis-02/2020 carotid doppler GERD (gastroesophageal reflux disease) controlled, stable per pt History of basal cell carcinoma nose s/p Moh's Hyperlipidemia Hypertension controlled, stable per pt Hypothyroidism Morbid obesity with BMI of 45.0-49.9, adult Osteoarthritis Ureteral stone To follow-up with urology, monitoring Surgical History (Updated 06/04/22 @ 09:49 by Ana Stover RN) Family history of reaction to anesthesia Mother > nausea H/O total thyroidectomy D/t thyroid nodule History of colonoscopy History of hysterectomy History of knee replacement Left History of partial mastectomy of right breast Right Breast Andie Radar Repairer Localized Partial Masectomy with Intraoperative Ultrsound and Right Breast Woodson Node Biopsy Dr. Perla Marin at [facility] History of right breast biopsy History of surgery on arm right wrist and elbow nerve transposition PONV (postoperative nausea and vomiting) Port-A-Cath in place (06/04/22) Insertion Access Port with Fluoroscopy(Left) - Gold Mitchell, DO, FACS Status post breast lumpectomy left breast (benign) Status post Mohs surgery Family History Mother Hypertension Kidney stones Father Prostate cancer, Onset Age: 58 Brother No problems noted. Sister No problems noted. Son No problems noted. Son No problems noted. Son No problems noted. Denies family history of Ovarian cancer Breast cancer Colorectal cancer Social History Smoking Status: Never smoker Second Hand Exposure: Yes (as child); Hx Alcohol Use: Yes Alcohol type: hard liquor Alcohol type Comment: social Alcohol Intake Frequency Comment: 1 every couple of months Hx Substance Use: No Preferred Language: Romanian Communication Ability: Effective Visual Impairment: Limited Hearing Ability: Normal Tax Processor Required: No Beliefs That Will Affect Care: None marital status: Current Living Situation: Spouse current occupational status: retired current occupation: Retired from [employer] How many Children do You have: 3 Feels Safe at Home: Yes Safety Concerns: Feels Safe At This Time Childhood Exposure to Second-Hand Smoke: Yes caffeine: Yes (soda) during the past year weight has: remained stable Dental Care, Regularly: Yes Seatbelt Use: always Assistive Devices: Glasses Review of Systems Review of Systems: All systems reviewed & are unremarkable except as noted in HPI & below Physical Exam Constitutional: WD/WN, vitals as above + morbidly obese Eyes: PERRL, conjunctivae normal, anicteric sclerae Neck: trachea midline, no thyromegaly Respiratory: normal respiratory effort, lungs clear to auscultation Cardiovascular: RRR, no murmur, no edema Gastrointestinal (Abdomen): Inspection/Auscultation: abdomen normal to inspection and normal bowel sounds; abdomen not distended Percussion/Palpation: + abdomen tender (epigastric) and abdomen soft; no guarding and abdomen not rigid Musculoskeletal: no cyanosis or clubbing, extremities motor strength 5/5 Skin: no rashes, warm and dry Neurologic: moves all extremities and awake; no focal motor deficits and not confused Psychiatric: A+Ox3, euthymic affect Genitourinary: no CVA tenderness Results & Data Results & Data ([facility]) Vital Signs (Past 12 Hours) Vital Signs Temp Pulse Pulse Resp BP BP Pulse Ox 06/12/22 17:15 92 H 18 121/74 94 06/12/22 16:45 94 H 112/66 92 06/12/22 16:28 18 94 06/12/22 16:26 104/69 06/12/22 16:26 97 H 18 94 06/12/22 15:47 100 H 18 87/65 L 93 06/12/22 15:30 36.8 C 109 H 20 75/48 L 97 O2 Del Method 06/12/22 17:15 06/12/22 16:45 Room Air 06/12/22 16:28 Room Air 06/12/22 16:26 06/12/22 16:26 Room Air 06/12/22 15:47 Room Air 06/12/22 15:30 Room Air Laboratory Results Abnormal lab results 06/12/22 06/12/22 06/12/22 Range/Units 16:06 16:06 16:20 WBC 1.40 L (4.8-10.8) K/ul RDW Coeff of Dorothea 14.6 H (11.5-14.5) % Plt Count 124 L (130-400) K/uL Neutrophils # (Manual) 0.17 L (1.4-6.5) K/uL Total Absolute Neuts 0.17 L* (1.4-6.5) K/uL Lymphocytes # (Manual) 0.53 L (1.2-3.4) K/uL Total Abs Lymphocytes 0.53 L (1.2-3.4) K/uL Metamyelocytes # (Man) 0.10 H (0-0) K/uL Myelocytes # (Manual) 0.06 H (0-0) K/uL PT 12.9 H (9.0-12.0) Seconds INR 1.2 H (0.9-1.1) APTT 78.7 H* (21.0-31.0) Seconds Sodium (136-145) mmol/L Chloride (98-107) mmol/L BUN (6-23) mg/dl Creatinine (0.6-1.2) mg/dl Glucose (70-99(Fasting)) mg/dl Lactate (0.4-2.0) mmol/L Total Bilirubin (0.2-1.0) mg/dl AST (13-39) U/L Troponin I High Sens (0-14) pg/ml Procalcitonin 3.98 H (0-0.5) ng/ml Urine Protein (Negative) Urine Blood (Negative) U Hyaline Cast (Auto) (0-5) /lpf U Epithel Cells (Auto) (0-5) /lpf 06/12/22 06/12/22 06/12/22 Range/Units 16:20 16:20 18:23 WBC (4.8-10.8) K/ul RDW Coeff of Dorothea (11.5-14.5) % Plt Count (130-400) K/uL Neutrophils # (Manual) (1.4-6.5) K/uL Total Absolute Neuts (1.4-6.5) K/uL Lymphocytes # (Manual) (1.2-3.4) K/uL Total Abs Lymphocytes (1.2-3.4) K/uL Metamyelocytes # (Man) (0-0) K/uL Myelocytes # (Manual) (0-0) K/uL PT (9.0-12.0) Seconds INR (0.9-1.1) APTT (21.0-31.0) Seconds Sodium 132 L (136-145) mmol/L Chloride 96 L (98-107) mmol/L BUN 30 H (6-23) mg/dl Creatinine 1.89 H (0.6-1.2) mg/dl Glucose 172 H (70-99(Fasting)) mg/dl Lactate 2.7 H* 3.0 H* (0.4-2.0) mmol/L Total Bilirubin 1.3 H (0.2-1.0) mg/dl AST 11 L (13-39) U/L Troponin I High Sens 36.7 H (0-14) pg/ml Procalcitonin (0-0.5) ng/ml Urine Protein (Negative) Urine Blood (Negative) U Hyaline Cast (Auto) (0-5) /lpf U Epithel Cells (Auto) (0-5) /lpf 06/12/22 Range/Units 18:41 WBC (4.8-10.8) K/ul RDW Coeff of Dorothea (11.5-14.5) % Plt Count (130-400) K/uL Neutrophils # (Manual) (1.4-6.5) K/uL Total Absolute Neuts (1.4-6.5) K/uL Lymphocytes # (Manual) (1.2-3.4) K/uL Total Abs Lymphocytes (1.2-3.4) K/uL Metamyelocytes # (Man) (0-0) K/uL Myelocytes # (Manual) (0-0) K/uL PT (9.0-12.0) Seconds INR (0.9-1.1) APTT (21.0-31.0) Seconds Sodium (136-145) mmol/L Chloride (98-107) mmol/L BUN (6-23) mg/dl Creatinine (0.6-1.2) mg/dl Glucose (70-99(Fasting)) mg/dl Lactate (0.4-2.0) mmol/L Total Bilirubin (0.2-1.0) mg/dl AST (13-39) U/L Troponin I High Sens (0-14) pg/ml Procalcitonin (0-0.5) ng/ml Urine Protein Trace H (Negative) Urine Blood Trace H (Negative) U Hyaline Cast (Auto) 10-30 H (0-5) /lpf U Epithel Cells (Auto) >30 H (0-5) /lpf Diagnostic Findings XR chest 1V portable CLINICAL HISTORY: SEPSIS COMPARISON STUDY: Chest CT September 22, 2020. Chest radiograph June 04, 2022. FINDINGS: Left internal jugular [id number]-[id number]-Ltxl is in place. There is no pneumothorax or pleural effusion. No consolidation is identified. Mild cardiomegaly is unchanged. Pulmonary vascular congestion with possible mild pulmonary edema has developed. IMPRESSION: Mild cardiomegaly. Interval development of pulmonary vascular congestion with possible mild pulmonary edema. CT OF THE ABDOMEN AND PELVIS WITHOUT CONTRAST CLINICAL HISTORY: Abdominal pain and diarrhea. Breast cancer. COMPARISON STUDY: CT of the abdomen and pelvis September 22, 2020. TECHNIQUE: Axial images of the abdomen and pelvis were obtained without IV contrast. Images were reviewed in the axial, sagittal, and coronal planes. Automated exposure control was utilized for the study. A dose lowering technique was utilized adhering to the principles of ALARA. FINDINGS: No pneumatosis, free air or portal venous gas is present. Evaluation of the abdomen and pelvis is suboptimal on this unenhanced exam. There is hepatic steatosis. Low-attenuation bilateral adrenal nodules were present on CT of September 22, 2020. These are benign. There is focal mild scarring within the midpole of the left kidney, unchanged. No urinary calculi are present. There is no hydronephrosis. Unenhanced images of the spleen and pancreas are unremarkable. There is no biliary or pancreatic ductal dilatation. No abdominal or pelvic lymphadenopathy is present. There is no evidence for a bowel obstruction. Colonic diverticulosis is noted without evidence for acute diverticulitis. The appendix is normal. Apparent mild diffuse colonic wall thickening is likely due to underdistention. No suspicious lesions within the visualized skeletal structures. Uterus is surgically absent. There is no ascites. IMPRESSION: 1. No bowel obstruction. Normal appendix. 2. Apparent mild diffuse colonic wall thickening. This is likely due to underdistention however a mild nonspecific colitis could appear similar. 3. Hepatic steatosis. 4. No urinary calculi or hydronephrosis. Medications Administered ER Medications Given: NSS 1L bolus Cefepime 2g IV ECG Indication: other (hypotension) Rate (beats per minute): 100 Rhythm: normal sinus Findings: no acute ischemic change Comparison ECG Date: from (December 17, 2021) Change: no significant change Code Status & VTE Plan Code Status Full VTE Prophylaxis Plan VTE Prophylaxis will be ordered: Yes PG Care Time/CCT Total # of Minutes Spent Total Time Spent with Patient: Total time spent is greater than 50% in coordination of care (as documented) at patient's floor/unit and/or counseling patient: Coding Level of Care Code 23349 Initial Inpt Care Lvl 3 Diagnoses Hypotension I95.9 UTI (urinary tract infection) N39.0 Neutropenia D70.9 Diarrhea R19.7 Gastritis K29.70 Elevated lactic acid level R79.89 Breast cancer, right C50.911
[2022-06-12] MEDS ORDERED: FAMOTIDINE 20 MG in SYRINGE 3 ML IV STA (18:55)
[2022-06-12] MEDS ORDERED: VANCOMYCIN HCL 2,750 MG in SODIUM CHLORIDE 0.9% 500 ML IV ONE (19:00)
[2022-06-12 19:19] LABS: Appearance Urine Clear (Clear); Bacteria Urine Automated Negative (Negative); Bilirubin Urine Negative (Negative); Blood Urine Trace (Negative); Color Urine Yellow; Epithelial Cell Urine Auto >30 /lpf (0-5); Glucose Urine UA Negative (Negative); Ketones Urine Negative (Negative); Leukocyte Esterase Urine Negative (Negative); Nitrite Urine Negative (Negative); Protein Urine Trace (Negative); RBC Urine Automated 0-4 /hpf (0-4); Specific Gravity Urine 1.013 (1.000-1.030); Urobilinogen Urine Negative (Negative); pH Urine 5.5 (4.5-7.5)
[2022-06-12] MEDS ORDERED: ACETAMINOPHEN 325 MG TAB PO PRN (19:55)
[2022-06-12] MEDS ORDERED: FILGRASTIM 480 MCG/1.6 ML VIAL SQ STA (21:47)
[2022-06-12] MEDS: LACTATED RINGER'S 1,000 ML IV SCH (22:26)
[2022-06-12] MEDS: HEPARIN SOD 5,000 UNIT/0.5 ML VIAL SQ SCH (22:44)
[2022-06-13] MEDS: ONDANSETRON INJ 2 MG/ML 2 ML VIAL IV PRN ×3 (01:05→23:37)
[2022-06-13] MEDS: HEPARIN SOD 5,000 UNIT/0.5 ML VIAL SQ SCH ×3 (05:48→20:57)
[2022-06-13] MEDS ORDERED: CEFEPIME 2,000 MG in SYRINGE 0 ML IV SCH (06:00)
[2022-06-13] MEDS: LEVOTHYROXINE SODIUM 137 MCG TABLET PO SCH (06:14)
[2022-06-13 07:41] LABS: INR 1.3 (0.9-1.1); Partial Thromboplastin Ratio 1.3; Partial Thromboplastin Time 35.7 Seconds (21.0-31.0); Prothrombin Time 13.6 Seconds (9.0-12.0)
[2022-06-13 08:00] LABS: Albumin Globulin Ratio 1.2 (0.9-2); Albumin Level 3.3 gm/dl (3.4-5.0); Bilirubin,Total 0.9 mg/dl (0.2-1.0); Calcium 8.3 mg/dl (8.5-10.1); Creatinine Clr Calc Pharmacy 82.7 ml/min; Est GFR (African American) 71.9 ml/min; Est GFR (Non-African American) 62.1 ml/min; Globulin 2.7 gm/dl (2.5-4.0); Phosphorus 2.7 mg/dl (2.5-4.9); Potassium 3.6 mmol/L (3.5-5.1)
[2022-06-13 08:10] LABS: Hematocrit (blood only) 33.8 % (34.1-44.9); Hemoglobin 11.3 g/dl (12.0-16.0); Mean Corpuscular Hemoglobin 28.2 pg (25.0-34.0); Mean Corpuscular Hgb Conc 33.4 g/dL (32.0-36.0); Mean Corpuscular Volume 84.3 fL (80.0-100.0); Mean Platelet Volume 10.8 fL (9.4-12.3); Platelet Count 117 K/uL (130-400); RDW Coefficient of Variation 14.5 % (11.5-14.5); RDW Standard Deviation 44.6 fL (36.4-46.3); Red Blood Count 4.01 M/uL (3.93-5.22); White Blood Count 3.94 K/ul (4.8-10.8)
[2022-06-13 08:12] LABS: ALC (manual) 0.75 K/uL (1.2-3.4); ANC (manual) 2.25 K/uL (1.4-6.5); Blast # (manual) 0.04 K/uL (0-0); Blast Cells % (manual) 1 %; Dohle Bodies 1+; Lymphocytes # (manual) 0.75 K/uL (1.2-3.4); Lymphocytes % (manual) 19 %; Metamyelocytes # (manual) 0.08 K/uL (0-0); Metamyelocytes % (manual) 2 %; Monocytes # (manual) 0.87 K/uL (0.24-0.82); Monocytes % (manual) 22 %; Neutrophils # (manual) 2.25 K/uL (1.4-6.5); Neutrophils % (manual) 57 %
[2022-06-13] MEDS: MULTIVITAMIN TAB PO SCH (08:41)
[2022-06-13] MEDS ORDERED: PANTOprazole 40 MG TAB PO SCH (09:00)
--- NOTE | 2022-06-13 09:18 | Hospitalist Progress Note ---
Date of Service June 13, 2022 Assessment & Plan (1) Hypotension: Plan: Resolved Likely secondary to diarrhea? typhlitis with chemotherapy in setting of antihypertensive use +/- infection. Improved with IV fluids alone. Need to rule out infective causes especially with elevated procalcitonin with blood and urine cultures. No definitive infective source but urinary frequency and one episode of dysuria concerning for UTI - broad spectrum antibiotics as below below normal AM cortisol, Continue LR @ 80ml/hr overnight Hold lisinopril/HCTZ and metoprolol. (2) UTI (urinary tract infection): Plan: UA pending at time of admission but urinary frequency and dysuria concerning for this in setting of hypotension and neutropenia. No CVA tenderness on exam Cefepime given in the ER, for broad spectrum coverage in immunosuppressed person with diarrhea, pending urine and blood cultures. (3) Neutropenia: Plan: Resolved secondary to antineoplastic therapy Discussed with Dr Lacey and in setting of suspected infective etiology recommend Neupogen 480 mcg SQ Neutropenic isolation precautions (4) Diarrhea: Plan: Suspect chemotherapy induced but given need to rule out infective causes will order stool PCR. (5) Gastritis: Plan: Suspected given epigastric pain on exam with recent steroid and Motrin use Famotidine 20mg IV now then pantoprazole 40mg PO daily (6) Elevated lactic acid level: Plan: Suspect due to hypoperfusion during hypotensive episode. did improve (7) Breast cancer, right: Plan: dx 01/2022 s/p Rt lumpectomy Started on docetaxel/cyclophosphamide last week Plan VTE Prophylaxis - heparin 7500 SQ q8h Diet - regular Disposition - admit to med/tele Admission and Anticipated Discharge Date Admission Date: June 12, 2022 Subjective Pt is fatigued, and still having diarrhea initial stool studies are negative for infection and neutropenia is rescued Review of Systems Review of Systems: Mild distress and significant fatigue no headache, no visual changes no speech or swallowing issues no chest pain, pressure or palpitations no shortness of breath, cough or wheezes no abdominal pain, nausea or vomiting, significant persistent diarrhea without other distress no dysuria, hematuria or frequency no focal joint pain or swelling no back pain, CVA tenderness or radicular pain no bruising, bleeding or rashes no focal signs of weakness or numbness or altered sensation no complaints of anxiety or depression.. Physical Exam Physical Exam: The patient appeared stable Vital signs as documented. Lungs are clear to auscultation and appear unlabored Cardiac exam, Rhythm is regular.. No murmurs, rubs or gallops. Abdominal exam reveals normal bowel sounds, soft non tender, no masses Extremities are nonedematous and both pedal pulses are normal. Neurologic exam is alert and oriented, no focal loss of strength or sensation Skin is without bruises or rashes Psychologically is without concerns for anxiety or depression. Results & Data Results & Data ([facility]) Vital Signs (Past 12 Hours) Vital Signs Temp Pulse Pulse Pulse Resp BP Pulse Ox 06/13/22 07:30 98.2 F 81 18 116/74 94 06/13/22 07:22 78 06/13/22 04:03 98.6 F 79 20 116/76 92 06/12/22 22:00 86 06/12/22 22:00 98.8 F 89 20 113/72 93 06/12/22 21:35 98.6 F 93 H 16 101/60 95 O2 Del Method 06/13/22 07:30 Room Air 06/13/22 07:22 06/13/22 04:03 Room Air 06/12/22 22:00 06/12/22 22:00 Room Air 06/12/22 21:35 Room Air PG Care Time/CCT Total # of Minutes Spent Total Time Spent with Patient: Total time spent is greater than 50% in coordination of care (as documented) at patient's floor/unit and/or counseling patient: Coding Level of Care Code 68680 Subseq Hosp Care Lvl 2 Diagnoses Hypotension I95.9 UTI (urinary tract infection) N39.0 Neutropenia D70.9 Diarrhea R19.7 Gastritis K29.70 Elevated lactic acid level R79.89 Breast cancer, right C50.911
[2022-06-13] MEDS: LACTATED RINGER'S 1,000 ML IV SCH (09:25)
[2022-06-13 10:45] LABS: Adenovirus F 40/41 PCR Not Detected (NotDetected); Astrovirus PCR Not Detected (NotDetected); Campylobacter PCR Not Detected (NotDetected); Clostridium diff Toxin A/B PCR Not Detected (NotDetected); Cryptosporidium PCR Not Detected (NotDetected); Cyclospora cayetanensis PCR Not Detected (NotDetected); Entamoeba histolytica PCR Not Detected (NotDetected); Enteroaggregative E.coli(EAEC) Not Detected (NotDetected); Enteropathogenic E.coli (EPEC) Not Detected (NotDetected); Enterotoxigenic E.coli (ETEC) Not Detected (NotDetected); Giardia lamblia PCR Not Detected (NotDetected); Norovirus GI/GII PCR Not Detected (NotDetected); Plesiomonas shigelloides PCR Not Detected (NotDetected); Rotavirus A PCR Not Detected (NotDetected); Salmonella PCR Not Detected (NotDetected); Sapovirus PCR Not Detected (NotDetected); Shiga-like Toxin E.coli (STEC) Not Detected (NotDetected); Shigella/Enteroinvasive E.coli Not Detected (NotDetected); Vibrio cholerae PCR Not Detected (NotDetected); Vibrio species PCR Not Detected (NotDetected); Yersinia enterocolitica PCR Not Detected (NotDetected)
[2022-06-13] MEDS ORDERED: VANCOMYCIN HCL 1,000 MG in SODIUM CHLORIDE 0.9% 250 ML IV SCH ×2 (12:00→20:00)
--- NOTE | 2022-06-13 13:20 | Pharmacy Report ---
Pharmacy Vanc AUC Short Note - Date of Service June 13, 2022 - Assessment & Plan Assessment 66 year old F receiving vancomycin/cefepime for possible UTI/unknown source of infection. Patient with breast CA, receiving chemotherapy. Elevated procalcitonin on admission. Blood and urine cultures pending currently Plan Vancomycin * AUC/EARLENE is the preferred PK/PD target for vancomycin * AUC guided dosing is effective and associated with decreased risk of nephrotoxicity compared to traditional trough targets * Received loading dose of vancomycin 2750 mg last evening - scr improving much more today, therefore ordered a random vancomycin level which resulted at ~10 mcg/ml - plan to start maintenance dosing now * Will start vancomycin 1000 mg iv q 12 hrs - this dosing is estimated to a trough level of ~20 mcg/mL is predicted to achieve target AUC/EARLENE of 400-600 m g/L.hr and may be associated with a 20% risk of nephrotoxicity * Since patient with elevated BMI (>35 kg/m2) will monitor closely for accumulation and obtain another level tomorrow AM to reassess dosing. May need to scale back on dosing depending on level Pharmacy will continue to follow and will adjust dose/frequency as necessary. Thank you.
[2022-06-13] MEDS: CEFEPIME 2,000 MG in SYRINGE 0 ML IV SCH ×2 (14:26→21:00)
--- NOTE | 2022-06-13 15:07 | Electrocardiogram Report ---
Test Reason : Blood Pressure : / mmHG Vent. Rate : 100 BPM Atrial Rate : 100 BPM P-R Int : 172 ms QRS Dur : 088 ms QT Int : 336 ms P-R-T Axes : 009 028 029 degrees QTc Int : 433 ms Normal sinus rhythm Nonspecific ST abnormality Abnormal ECG When compared with ECG of 17-DEC-2021 11:43, No significant change was found Confirmed by Neal Dean ([id number]) on 06/13/2022 3:07:33 PM Referred By: Dianna Lacey Confirmed By:Vadim Dean
[2022-06-13] MEDS: LOPERAMIDE HCL 2 MG CAP PO PRN (17:59)
[2022-06-13] MEDS: PSYLLIUM or GUAR GUM FIBER POWDER PACKET PO SCH (18:00)
[2022-06-13] MEDS: PANTOprazole 40 MG TAB PO SCH (20:55)
[2022-06-13] MEDS ORDERED: Nursing to Pharmacy Communication SCH (21:00)
[2022-06-14] MEDS: LACTATED RINGER'S 1,000 ML IV SCH (01:02)
[2022-06-14] MEDS: LOPERAMIDE HCL 2 MG CAP PO PRN ×2 (04:28→07:38)
[2022-06-14] MEDS: LEVOTHYROXINE SODIUM 137 MCG TABLET PO SCH (06:28)
[2022-06-14] MEDS: CEFEPIME 2,000 MG in SYRINGE 0 ML IV SCH ×2 (06:29→13:54)
[2022-06-14] MEDS: HEPARIN SOD 5,000 UNIT/0.5 ML VIAL SQ SCH ×2 (06:37→13:54)
[2022-06-14 06:44] LABS: Creatinine Clr Calc Pharmacy 99.7 ml/min; Est GFR (African American) 89.7 ml/min; Est GFR (Non-African American) 77.4 ml/min
[2022-06-14 06:47] LABS: Hematocrit (blood only) 33.2 % (34.1-44.9); Hemoglobin 11.3 g/dl (12.0-16.0); Mean Corpuscular Hemoglobin 28.9 pg (25.0-34.0); Mean Corpuscular Volume 84.9 fL (80.0-100.0); Mean Platelet Volume 10.9 fL (9.4-12.3); Platelet Count 150 K/uL (130-400); RDW Coefficient of Variation 14.4 % (11.5-14.5); RDW Standard Deviation 44.4 fL (36.4-46.3); Red Blood Count 3.91 M/uL (3.93-5.22); White Blood Count 19.86 K/ul (4.8-10.8)
[2022-06-14 06:53] LABS: ALC (manual) 1.19 K/uL (1.2-3.4); ANC (manual) 17.28 K/uL (1.4-6.5); Dohle Bodies 2+; Lymphocytes # (manual) 1.19 K/uL (1.2-3.4); Lymphocytes % (manual) 6 %; Monocytes # (manual) 0.99 K/uL (0.24-0.82); Monocytes % (manual) 5 %; Myelocytes % (manual) 2 %; Neutrophils # (manual) 17.28 K/uL (1.4-6.5); Neutrophils % (manual) 87 %; Toxic Granulation 2+
[2022-06-14] MEDS: ONDANSETRON INJ 2 MG/ML 2 ML VIAL IV PRN (07:37)
[2022-06-14] MEDS: PANTOprazole 40 MG TAB PO SCH (07:38)
[2022-06-14] MEDS: PSYLLIUM or GUAR GUM FIBER POWDER PACKET PO SCH (08:12)
[2022-06-14] MEDS: MULTIVITAMIN TAB PO SCH (08:12)
[2022-06-14] MEDS ORDERED: VANCOMYCIN LEVEL ONE (11:30)
[2022-06-14] MEDS: HEPARIN 100 UNIT/ML 5ML FLUSH FLUSH PRN ×2 (12:28→13:54)
[2022-06-14] MEDS ORDERED: ALUMINUM/MAGNESIUM SUSP 30 ML UDC PO PRN (14:45)
--- NOTE | 2022-06-14 17:51 | Discharge Summary ---
Date of Service June 14, 2022 Admission HPI Per Admitting Provider Abbie Leslie is a 66 year old female with right sided breast cancer sent over from the [facility] due to hypotension. She reports dizziness, mild headache, diarrhea, generalized weakness, pain in her hands and feet and epigastric pain since starting on chemotherapy on Thursday. Per last oncology note she was started on docetaxel/cyclophosphamide. Reportedly she was also given Neulasta 2 days ago. She reports her main initial symptom was the pains in her legs and feet and not being able to walk. She was given prednisone and Motrin to help with this and these pains have been slowly getting better. However the diarrhea started next and she was concerned this was due to the prednisone so has since discontinued as of yesterday. The diarrhea has been occasionally bloody, very loose and watery - although she is yet to have a bowel movement today. She reports having mild GERD normal for which she takes intermittent Maalox however never had epigastric pain such as what she has had over the last two days and no prior known stomach ulcers. She currently has no epigastric pain except on palpation. She has also noted urinary frequency since the chemotherapy started and one episode of dysuria in the emergency room today. She denies any fever or chills. No upper respiratory symptoms. She had been taking all her usual blood pressure medications (lisinopril/HCTZ/metoprolol) during this time except for this morning when she was advised to stop by the [facility]. She went to the [facility] today due to all these symptoms and was given 2L IV fluids. Despite this her blood pressure remained low therefore was sent to the ER for further workup. In the ER she was neutropenic with ANC 0.17. Procalcitonin was elevated at 3.98. Lactate elevated at 2.7. She was given an additional 1L IV NSS and cefepime 2g IV to cover for infective etiology. UA pending at time of admission. She was referred to medicine for admission and ongoing management of hypotension. Principal Diagnosis Chemotherapy-induced neutropenia and diarrhea causing hypotension in the setting of antihypertensive use Discharge Exam Constitutional WD/WN, vitals as above + morbidly obese Neck trachea midline, no thyromegaly Respiratory normal respiratory effort, lungs clear to auscultation Cardiovascular RRR, no murmur, no edema Gastrointestinal (Abdomen) Inspection/Auscultation: abdomen normal to inspection and normal bowel sounds; abdomen not distended Skin no rashes, warm and dry Neurologic moves all extremities and awake; no focal motor deficits and not confused Psychiatric A+Ox3, euthymic affect Discharge Data Allergies Allergy/AdvReac Type Severity Reaction Status Date / Time diclofenac Allergy Severe Anaphylaxis Verified 06/12/22 16:14 Consultations 06/12/22 18:07 ED Decision to Admit Stat Ordered Studies 06/12/22 16:58 CT abd pelvis wo con Stat IMPRESSION: 1. No bowel obstruction. Normal appendix. 2. Apparent mild diffuse colonic wall thickening. This is likely due to underdistention however a mild nonspecific colitis could appear similar. 3. Hepatic steatosis. 4. No urinary calculi or hydronephrosis. Hospital Course (1) Hypotension: Abbie Leslie is a 66-year-old female admitted to [facility] from June 12 - 2021 due to hypotension and concerns of sepsis (increased procalcitonin, diarrhea, urinary Sx). Due to chemotherapy induced neutropenia she was started on cefepime and vancomycin to cover for bacterial infections. Subsequently no infection was found and blood cultures are negative after 48 hours. Antibiotics therefore have been discontinued. Likely the diarrhea was caused by chemotherapy which subsequently caused hypotension in the setting of her antihypertensives. All antihypertensives were discontinued during her inpatient stay however she was resumed on her usual metoprolol succinate on discharge. Lisinopril and hydrochlorothiazide have been discontinued. She should follow-up with her oncologist on discharge regarding ongoing advice of her chemotherapy. She was also diagnosed with gastritis likely due to recent steroid use and chemotherapy. She was started on pantoprazole 40 mg p.o. daily for this. (2) UTI (urinary tract infection): (3) Neutropenia: (4) Diarrhea: (5) Gastritis: (6) Elevated lactic acid level: (7) Breast cancer, right: Total Time Total Time Spent Total Time Spent (In Minutes): 40 Discharge Plan Discharge Items Patient Disposition: Home - Self-Care Reason For Visit: NEUTROPENIA, HYPOTENSION Discharge Diagnosis: Chemotherapy-induced neutropenia and diarrhea causing hypotension in the setting of antihypertensive use Activity: Resume your previous activity Non-emergency contact: Oncologist Call non-emergency contact if: you have any medication questions and your symptoms worsen Follow-up/Referrals: Neal Urrutia MD [Primary Care Provider] - Diet: Regular Addtl Attending Provider Instructions: You were admitted to [facility] from June 12 - 2021 due to hypotension (low blood pressure) and concerns of sepsis (severe infection causing systemic inflammatory reaction). Due to chemotherapy induced neutropenia (low blood count of neutrophils needed to fight infections) you were treated with broad-spectrum antibiotics in case of an infection. Subsequently no infection was found and blood cultures are negative after 48 hours. Antibiotics therefore have been discontinued. Likely the diarrhea was caused by chemotherapy which subsequently caused low blood pressure in the setting of you taking antihypertensive medications (medications to reduce your blood pressure). All your antihypertensives were discontinued during your inpatient stay however you can safely resume metoprolol succinate on discharge. Lisinopril and hydrochlorothiazide have been discontinued. Please follow-up with your oncologist on discharge for ongoing advice regarding your chemotherapy. Given your ongoing gastritis recommend using pantoprazole 40 mg p.o. daily to reduce stomach acid. Pending Studies at Discharge: No Stand-Alone Forms: My [facility], Smoking Cessation Medications and DC Order Prescriptions: New loperamide 2 mg Capsule 2 mg PO Q6 PRN (Reason: diarrhea) Qty: 20 0RF pantoprazole 40 mg Tablet,Delayed Release (Dr/Ec) 40 mg PO QAM Qty: 30 0RF Continued multivitamin Tablet 1 tab PO DAILY polyethylene glycol 3350 [Miralax] 17 gram/dose powder 17 g PO DAILY PRN (Reason: Constipation) [place] Gold 344-1,050-1,000 mg tablet, effervescent 1 tab PO Q4H PRN (Reason: Gi Upset) simvastatin 20 mg tablet 20 mg PO HS Qty: 90 3RF levothyroxine 137 mcg tablet 137 mcg PO QAM Qty: 90 3RF metoprolol succinate 50 mg tablet extended release 24 hr 50 mg PO DAILY Qty: 90 3RF Discontinued lisinopril-hydrochlorothiazide 20-25 mg tablet 1 tab PO QAM Discharge Orders: Discharge Order (Routine); Ordered 06/14/22 Ordered By: Tha Up Admission Data Admit Date/Time: 06/12/22 19:12 Attending Provider: Tha Up Admit Provider: Tha Up Primary Care Provider: Neal Urrutia Other Providers: Tha Up Other Interventions: Discharge Summary Assessment (RN) Last Done: 06/14/22 18:04 Coding Level of Care Code D/C DAY MANAGEMENT >30 MINS Diagnoses Hypotension I95.9 UTI (urinary tract infection) N39.0 Neutropenia D70.9 Diarrhea R19.7 Gastritis K29.70 Elevated lactic acid level R79.89 Breast cancer, right C50.911
== END 2022-06-14 18:44 | disposition home or self-care (01) | DRG 809 ==
LOC: ED 15:29 → EDINP 19:12 → SUATTDRO 19:12 → 2W 21:26

== ENCOUNTER 2023-10-08 09:00 | Observation (INO) ==
--- NOTE | 2023-09-21 13:54 | PAT Medication Instructions ---
Medication Instructions Date of Service September 21, 2023 Home Medications Medication Instructions Recorded amoxicillin 500 mg tablet 2,000 mg (4 x 500 mg) PO .COMPLEX 01/20/23 #8 tabs clindamycin phosphate 1 % topical 1 applic topical DAILY #60 mL 05/04/23 solution levothyroxine 137 mcg tablet 137 mcg PO .COMPLEX #90 tabs 06/25/23 pantoprazole 40 mg tablet,delayed 40 mg PO QAM #90 tabs 07/13/23 release simvastatin 20 mg tablet 20 mg PO HS #90 tabs 09/07/23 multivitamin 1 tab PO DAILY loratadine 10 mg tablet (Claritin) 10 mg PO DAILY PRN anastrozole 1 mg tablet 1 mg PO QAM amoxicillin 500 mg tablet 2,000 mg (4 x 500 mg) PO .COMPLEX cholecalciferol (vitamin D3) 50 mcg (2,000 unit) capsule (Vitamin D3) 50 mcg PO QAM clindamycin phosphate 1 % topical solution 1 applic topical DAILY levothyroxine 137 mcg tablet 137 mcg PO .COMPLEX pantoprazole 40 mg tablet,delayed release 40 mg PO QAM vitamin B complex 1 tab PO QAM simvastatin 20 mg tablet 20 mg PO HS lisinopril 10 mg-hydrochlorothiazide 12.5 mg tablet 1 tab PO QAM metformin 500 mg tablet,extended release 24 hr 500 mg PO QAM metoprolol succinate 50 mg tablet,extended release 24 hr 50 mg PO QAM Continue as directed amoxicillin 500 mg tablet 2,000 mg (4 x 500 mg) PO .COMPLEX levothyroxine 137 mcg tablet 137 mcg PO .COMPLEX ASK your prescriber and surgeon anastrozole 1 mg tablet 1 mg PO QAM STOP taking 24 hours before surgery clindamycin phosphate 1 % topical solution 1 applic topical DAILY DO NOT take the morning of surgery multivitamin 1 tab PO DAILY loratadine 10 mg tablet (Claritin) 10 mg PO DAILY PRN(if needed) cholecalciferol (vitamin D3) 50 mcg (2,000 unit) capsule (Vitamin D3) 50 mcg PO QAM vitamin B complex 1 tab PO QAM lisinopril 10 mg-hydrochlorothiazide 12.5 mg tablet 1 tab PO QAM metformin 500 mg tablet,extended release 24 hr 500 mg PO QAM Take morning of surgery With a small sip of water, OTHERWISE NOTHING TO EAT OR DRINK AFTER MIDNIGHT: pantoprazole 40 mg tablet,delayed release 40 mg PO QAM metoprolol succinate 50 mg tablet,extended release 24 hr 50 mg PO QAM Take evening before surgery simvastatin 20 mg tablet 20 mg PO HS Other Notes If you have any questions please call us at [phone] or [phone] or [phone] or [phone]
--- NOTE | 2023-09-24 15:15 | Anesthesiology Consultation ---
Date of Service September 24, 2023 Assessment & Plan (1) Encounter for pre-operative examination: - Check BSG AM DOS - RUE limb restriction - Infectious disease screening: Per assessment on 09/24/23: No known infectious disease contacts or current infectious disease symptoms. No noted recent Covid positive test result. - Outpatient joint assessment: Pt currently scheduled for inpatient pathway. If surgeon requests review for outpatient joint pathway, patient is not recommended candidate for outpatient joint program from anesthesia standpoint. - S/P Left TKA (12/24/21): SAB x1 attempt + regional at [facility] - PCP visit (06/23/23 [place]): "Hypothyroidism.. Decrease levothyroxine to 137 mcg 6 days per week. Check laboratories before next appointment.. Prediabetes.. Since the patient is having adverse effects with metformin twice a day decreased to once a day. Check hemoglobin A1c prior to next appointment.. Epidermal cyst.. Continue to monitor. If the area gets red and swollen again she will call. Right knee pain.. Patient knows she will need to see orthopedics in the future. She would like to hold off on this for now. If needed will provide a referral when the patient is ready." - Allergy visit (06/10/23 [place]): "Pt. is a 67 y.o. female referred for evaluation of a intermittent episodes where she can not get air in or out. She has been experiencing symptoms for the past 1-1.5 yrs. Her symptoms last approximately 1-2 minutes in length and she c/o associated gasping for breath and wheezing. Following an episode she coughs. PFTs were completed on 06/09/2023 and documented no significant abnormalities. Her symptoms are very suggestive of vocal cord dysfunction. For further evaluation we are recommending a speech therapy appt. and an ENT appt. Patient literature and exercises for vocal cord dysfunction were provided today. She is to f/u in our office prn." > Awaiting upcoming ENT visit scheduled prior to surgery ([facility], appt 09/28). Patient otherwise acceptable risk for surgery. Chart Review Chart Review: Patient seen in Pre Admission Testing Teaching & Discussion Pre-Anesthesia Teaching/Discussion Notes: Instructed NPO after midnight before surgery,except medications with 15 cc of water. Medication instructions provided according to the PAT guidelines. History Surgery Operation Date: 10/08/23 10:10 Proposed Procedures p Right Total Knee Arthroplasty - Sudhir Harvey MD Height/Weight Height: 5 ft 6.5 in Weight: 129 kg Allergies Allergy/AdvReac Type Severity Reaction Status Date / Time diclofenac Allergy Severe Anaphylaxis Verified 09/21/23 11:24 Medications Home Medications Medication Instructions Recorded Confirmed Last Taken multivitamin 1 tab PO DAILY 04/24/22 09/21/23 02/15/23 loratadine 10 mg tablet (Claritin) 10 mg PO DAILY PRN Allergy Symptoms 09/15/22 09/21/23 Unknown anastrozole 1 mg tablet 1 mg PO QAM 11/10/22 09/21/23 02/16/23 07:30 amoxicillin 500 mg tablet 2,000 mg (4 x 500 mg) PO .COMPLEX 01/20/23 09/21/23 Unknown #8 tabs cholecalciferol (vitamin D3) 50 50 mcg PO QAM 02/05/23 09/21/23 02/15/23 mcg (2,000 unit) capsule (Vitamin D3) clindamycin phosphate 1 % topical 1 applic topical DAILY #60 mL 05/04/23 09/21/23 Unknown solution levothyroxine 137 mcg tablet 137 mcg PO .COMPLEX #90 tabs 06/25/23 09/21/23 Unknown pantoprazole 40 mg tablet,delayed 40 mg PO QAM #90 tabs 07/13/23 09/21/23 Un known release vitamin B complex 1 tab PO QAM 08/04/23 09/21/23 Unknown simvastatin 20 mg tablet 20 mg PO HS #90 tabs 09/07/23 09/21/23 Unknown lisinopril 10 1 tab PO QAM 09/21/23 09/21/23 Unknown mg-hydrochlorothiazide 12.5 mg tablet metformin 500 mg tablet,extended 500 mg PO QAM 09/21/23 09/21/23 Unknown release 24 hr metoprolol succinate 50 mg 50 mg PO QAM 09/21/23 09/21/23 Unknown tablet,extended release 24 hr Past Medical History Medical History Prediabetes Hx of TB skin testing hx of positive skin test 50 yrs ago > re-tested years later, and was negative 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 No evidence of hemodynamically significant carotid stenosis-02/2020 carotid doppler Morbid obesity with BMI of 45.0-49.9, adult Breast cancer, right dx 01/2022 s/p Right lumpectomy, chemo completed 08/2022 Osteoarthritis GERD (gastroesophageal reflux disease) controlled, stable per pt Hyperlipidemia History of basal cell carcinoma nose s/p Moh's Hypertension controlled, stable per pt Hypothyroidism Ureteral stone resolved per pt, came in for surgery for this and it could not be found, no further issues Exercise / Class Metabolic Activity II 4-5 Yardwork/Stairs/Walk up hill Past Family History Family History Mother Hypertension Kidney stones Father Prostate cancer, Onset Age: 58 Brother Accidental injury Sister Osteoarthritis Son No problems noted. Son No problems noted. Son No problems noted. Denies family history of Ovarian cancer Breast cancer Colorectal cancer Past Surgical History Surgical History Port-A-Cath in place (06/04/22) Insertion Access Port with Fluoroscopy(Left) - Gold Mitchell, DO, FACS History of knee replacement Left Status post Mohs surgery History of right breast biopsy History of partial mastectomy of right breast Right Breast [employer] Localized Partial Masectomy with Intraoperative Ultrsound and Right Breast [place] Node Biopsy Dr. Perla Marin at [facility] Family history of reaction to anesthesia Mother > nausea H/O total thyroidectomy D/t thyroid nodule PONV (postoperative nausea and vomiting) History of surgery on arm right wrist and elbow nerve transposition History of hysterectomy Status post breast lumpectomy left breast (benign) History of colonoscopy Past Anesthesia History No Hx of Anesthesia Complications and No Family Hx of Anesthesia Complications History of PONV No Hx of Motion Sickness and History of PONV Social History Smoking Status: Never smoker Do You Dip or Chew Tobacco: No Hx Alcohol Use: Yes Alcohol type: hard liquor alcohol intake frequency: holidays/special occasions only Hx Substance Use: No substance use type: does not use Review of Systems Patient denies chest pain, shortness of breath, dyspnea on exertion, fever, chills, cough, wheezing, palpitations. Physical Exam Vital Signs VITALS BP 135/82 P 77 TEMP 98.5 SP02 96%RA RESP 18 PHYSICAL Full cervical extension range of motion. Full TMJ range of motion. TMD 3 finger breaths Mallampati Score 2 Dentition: missing side Lungs: clear throughout to auscultation Cardiac: regular rate and rhythm, no murmurs noted Spine: normal Carotid arteries: negative bruit Extremities: no LE edema Lab Results Anesthesia Preop Results Results Anesthesia Widget: WBC 7.48 K/ul (4.8-10.8) 09/24/23 Hgb 13.2 g/dl (12.0-16.0) 09/24/23 Hct 40.8 % (37.0-47.0) 09/24/23 Plt 230 K/uL (130-400) 09/24/23 Na 140 mmol/L (136-145) 09/24/23 K 3.6 mmol/L (3.5-5.1) 09/24/23 Cl 102 mmol/L (98-107) 09/24/23 CO2 30 mmol/L (21-32) 09/24/23 BUN 16 mg/dl (6-23) 09/24/23 Creat 0.78 mg/dl (0.6-1.2) 09/24/23 Glucose Level 104 mg/dl (70-99(Fasting)) H 09/24/23 PT 11.0 Seconds (9.0-12.0) 09/24/23 PTT 30 Seconds (21-31) 09/24/23 INR 1.0 (0.9-1.1) 09/24/23 HA1c 5.9 % (4.5-5.6) H 09/24/23 Blood Type O Positive 09/24/23 Antibody Screen NEGATIVE 09/24/23 Testing Electrocardiogram Date: 09/24/23 Findings: + NSR @ (82) Chest X-Ray Date: 09/24/23 FINDINGS: Cardiac silhouette is enlarged. Left IJ [id number] catheter is unchanged. Mild right hemidiaphragmatic elevation. No pneumothorax, pleural effusion or airspace consolidation. Spondylotic spurring of the spine. IMPRESSION: No acute process. Stress Test Date: 12/18/21 Type: DSE Negative for inducible ischemia at 85% MPHR EF 60% Mild cLVH No wall motion abnormalities Trace mitral regurgitation
[~2023-10-08 09:00] MED LIST changes: -BUPIVACAINE 0.25% 30 ML VIAL ONE; -BUPIVACAINE 0.5 % 5 MG/1 ML PF 10ML VIAL ONE; +BUPIVACAINE LIPOSOME/PF 266 MG, BUPIVACAINE/EPINEPHRINE 50 ML, SODIUM CHLORIDE 0.9% PF ... INFIL SCH; -DEXAMETHASONE SOD INJ 4 MG/ML VIAL ONE; -EPINEPHrine INJ 1 MG/ML AMP ONE; -GABAPENTIN 300 MG CAP PO SCH; +METOCLOPRAMIDE HCL 10 MG TABLET PO SCH; +ROPIVACAINE 0.5% 5 MG/ML 30 ML VIAL ONE; -ROPIVACAINE 0.5% HCL/PF 150 MG, BUPIVACAINE 0.75% MPF 20 ML, EPINEPHrine 0.15 MG, dexAM... INFIL SCH; -TRANEXAMIC ACID 1,000 MG **IV Pre-op IV SCH; +ceFAZolin 2000MG 2,000 MG/15 ML SYR IV SCH; +dexAMETHasone**PF** 10 MG/ML VIAL IV SCH; -oxyCODONE HCL 10 MG TABCR (OxyCONTIN) PO SCH
--- NOTE | 2023-10-08 09:34 | History & Physical Bridge Note ---
Date of Service October 08, 2023 History & Physical Bridge Note I have examined the patient, reviewed the History & Physical and in the interval since the performance of the History & Physical I have noted the following changes of clinical significance: no changes noted
[2023-10-08] MEDS ORDERED: MIDAZOLAM HCL 1 MG/ML 2ML VIAL ONE ×2 (10:16→12:10)
[2023-10-08] MEDS ORDERED: ONDANSETRON INJ 2 MG/ML 2 ML VIAL ONE (10:49)
[2023-10-08] MEDS ORDERED: PROPOFOL IV EMULSION 10 MG/ML 20 ML VIAL IV ONE ×2 (10:49→13:02)
[2023-10-08] MEDS ORDERED: LIDOCAINE 2% 2 ML VIAL/AMP(20MG/ML) INFIL ONE (10:49)
[2023-10-08] MEDS ORDERED: DEXAMETHASONE SOD INJ 4 MG/ML VIAL ONE (11:33)
[2023-10-08] MEDS ORDERED: BUPIVACAINE/EPINEPHRINE 0.25% 1:200,000 30 ML VIAL ONE (11:45)
[2023-10-08] MEDS ORDERED: SODIUM CHLORIDE 0.9% PF 50 ML VIAL ONE (11:45)
[2023-10-08] MEDS ORDERED: BUPIVACAINE LIPOSOME 1.3% 266 MG/20 ML VIAL ONE (11:46)
--- NOTE | 2023-10-08 14:27 | Operative Report ---
PG Post Operative Report Pre & Post Diagnosis Operation Date: 10/08/23 10:20 Pre-Op Diagnosis: Right Knee AdvancednDegenerative Joint Disease Post-Op Diagnosis: Right Knee AdvancednDegenerative Joint Disease I identified the patient and participated in the time-out.: Yes Procedure Operation Date: 10/08/23 10:20 Actual Procedures p Right Total Knee Arthroplasty(Right) - Sudhir Harvey MD Surgeon Sudhir Harvey MD Frog Farmer Annel Gautam PA-C Estimated Blood Loss 50 Findings Consistent with Post-Op Diagnosis Operative findings were advanced right knee medial compartment DJD. She had extensive and full-thickness cartilage loss of the medial compartment of her knee. Some moderate degenerative changes elsewhere. She had a large soft tissue envelope with a moderate to knee joint effusion. Specimens Right knee sent for pathology. Anesthesia Type Spinal MAC Complications none Disposition Accompanied Patient To Recovery: No Indications Patient is a 67-year-old female is had a several year history of increasing bilateral knee pain discomfort describes gotten worse over time. She had her left knee replaced a little almost 2 years ago and is done pretty well from this. She continues to be limited by right knee pain and discomfort. X-rays show advanced medial compartment arthritis. She elected proceed with total knee arthroplasty. We did put a cemented stem in this patient due to her low very large size and BMI. Description of Procedure Operative implants consisted of: 1 Biomet Vanguard size 62.5 right posterior stabilized femoral component. 2. Biomet size 67 tray with a 80 x 12.5 mm cemented stem. 3. 10 mm pro stabilized polyethylene insert. 4. 31 x 8 all poly patella. The patient was taken the operating, identified, and placed on the operating table in the supine position. All contact areas were appropriately padded. IV antibiotics tried by anesthesia team. A spinal anesthetic and adductor canal block had provided holding area. Yates catheter was placed in sterile fashion. Right Tetrick was then placed in the right lower extremities and prepped draped in usual sterile fashion. The right leg was elevated exsanguinated with use of an Esmarch and the tourniquet was placed at 300 mmHg. An anterior approach to the right knee was then performed to longitudinal incision centered over the patella. Sharp dissection was carried through subcutaneous tissue down to the extensor mechanism. A medial parapatellar arthrotomy incision was made. Some subperiosteal dissection was carried out medially. The fat pad was resected from Neath patella tendon. Lateral patellofemoral ligament was released. Patella subluxated laterally and the knee was flexed. The osteophytes were taken off distal femur. The ACL and PCL were then released from distal femur the tibia subluxated anteriorly. The external tibial alignment jig was then placed in the interface the tibia and adjusted 14 mm medially. Proximal tibial cut was made remove about millimeter to bone from most deficient aspect the medial tibial plateau. The tibia sized to size 67. Attention drawn the femur. Distal femur examined the sharp drop with intramedullary canal was suction. A right 5 degree valgus cutting guide was placed. The distal femoral cutting block was pinned in place. This femoral cut was made to take an additional 3 mm of bone off distal femur. The femur was then sized to a size 62.5. The AP cutting block was pinned parallel to the epicondylar axis which was 3 degrees of external rotation. The anterior cut, anterior chamfer, posterior cut, posterior chamfer cuts were made. The box cutting guide was placed and adjusted slightly laterally and the box cut was made. The knee was flexed. The remnants of the medial and lateral menisci were excised. The osteophytes taken off the posterior aspect of the femur. Trial femoral component was placed. Tibial tray was pinned Roxana external rotation and the drill and stem punch used to create defect in proximal tibia for the tibial tray. We then reamed up to a about a 15 mm reamer for the 8 cm cemented stem. The trial implant was placed. The knee was trialed and 10 mm insert fit most appropriately. Attention drawn the patella. The patella was cleaned of all soft tissues. Patella thickness measured about 18 mm in thickness was cut down to 12. It was sized to a size 31 patella. The locals were drilled for 31 patella. Lateral osteophytes removed. Patella button was placed. Knee was taken through range of motion of the patella tracked well with no thumbs test. Attention drawn to placing permanent components. Nupathe all trial components were removed. Bone plug was placed in the distal femur limit blood loss. Double batch Palacos G cement was mixed. Biomet Lovelogicaguard size 62.5 right Po stabilized femoral component, a size 67 tibial tray with an 80 mm x 12.5 mm stem extension was placed followed by a 10 mm pro stabilized polyethylene insert, and a 31 x 8 all poly patella. The knee was brought out into full extension till cement hardened. Final cement check was then performed. The pericapsular tissues were injected with total 100 cc of combination of 20 cc of Exparel, 30 cc normal saline, 50 cc of quarter percent Marcaine with epinephrine. Patient did receive 1 g tranexamic acid. The tourniquet was then let down for final tourniquet time 62 minutes. Hemostasis assured use electrocautery. Extensor Meclomen closed with combination 1 PDS suture #1 Vicryl suture in [id number] fashion. Extensor mechanism checked found to be intact the subcutaneous tissue then closed with 2 Dexon suture in buried interrupted fashion skin was closed skin dhaval. Leg was then cleaned and dried and sterile dressing was Xeroform, 4 fours, sterile cast padding, Lobo bandage were applied. Patient transferred to the recovery room in stable condition. The patient tolerated the procedure well and there were no complications. Annel Gautam, my physician physicians assistant, was present for the entire procedure. Her assistance was required for proper patient positioning, prepping and draping, surgical exposure, retraction, performed technical details of the operation, placement of the hardware, closure of the incision site and placement of sterile bandage. I attest to the content of the Intraoperative Record and any orders documented therein. Any exceptions are noted below.
--- NOTE | 2023-10-08 15:06 | XRay Report ---
XR knee RT 1 or 2V routine HISTORY: 67 years-old Female Surgical Post Op right knee arthroplasty COMPARISON: 07/28/2023 TECHNIQUE: 2 views of the right knee FINDINGS: Total joint arthroplasty with patellar resurfacing. Dystrophic calcifications are again noted adjacen t to the medial aspect of the medial femoral condyle. Anterior midline skin dhaval with expected pos toperative finding and deep tissue air. No acute fracture or malalignment. IMPRESSION: Total joint arthroplasty with expected postoperative changes. ACT 112: Negative or not required by law. The above report was generated using voice recognition software. It may contain grammatical, syntax o r spelling errors. Electronically signed by: Myles Prakash M.D. 10/08/2023 3:05 PM
[2023-10-08] MEDS ORDERED: LORATADINE 10 MG TAB PO PRN (16:01)
[2023-10-08] MEDS ORDERED: NON-FORMULARY MEDICATION (Amoxicillin 500 mg tablet) PO SCH (16:01)
[2023-10-08] MEDS ORDERED: DEXTROSE 50% 50 ML SYRINGE IV PRN (16:01)
[2023-10-08] MEDS ORDERED: NALOXONE HCL 0.4 MG/1 ML VIAL/CARP IV PRN (16:01)
[2023-10-08] MEDS ORDERED: HYDROmorphone INJ 0.5 MG/0.5 ML SYR IV PRN (16:01)
[2023-10-08] MEDS ORDERED: PHARMACY GLYCEMIC MGMT CONSULT PRN (16:01)
[2023-10-08] MEDS ORDERED: CARBOHYDRATES FOR HYPOGLYCEMIA PO PRN (16:01)
[2023-10-08] MEDS ORDERED: GLUCAGON FOR INJ 1 MG VIAL SQ PRN (16:01)
[2023-10-08] MEDS ORDERED: GLUCOSE 40% GEL 15 GM TUBE PO PRN (16:01)
[2023-10-08] MEDS ORDERED: METOCLOPRAMIDE HCL INJ 5 MG/ML 2 ML VIAL IV PRN (16:01)
[2023-10-08] MEDS ORDERED: MAGNESIUM HYDROXIDE SUSP 30 ML UDC PO PRN (16:01)
[2023-10-08] MEDS ORDERED: bisacodyL 10 MG SUPP PR PRN (16:01)
[2023-10-08] MEDS ORDERED: ONDANSETRON INJ 2 MG/ML 2 ML VIAL IV PRN (16:01)
[2023-10-08] MEDS ORDERED: ALUMINUM/MAGNESIUM SUSP 30 ML UDC PO PRN (16:01)
[2023-10-08] MEDS ORDERED: GLUCOSE 10 TAB/TUBE PO PRN (16:01)
[2023-10-08] MEDS: Scopolamine CHECK PATCH PLACEMENT SCH (16:07)
[2023-10-08] MEDS: SODIUM CHLORIDE 0.9% 1,000 ML IV SCH (16:08)
--- NOTE | 2023-10-08 16:08 | Anesthesiology Progress Note ---
Date of Service October 08, 2023 Anesthesia Post Procedure Vital Signs Vital Signs: Temp Pulse Pulse Resp BP Pulse Ox O2 Del Method 10/08/23 15:55 36.9 C 73 16 115/72 94 Room Air 10/08/23 15:30 73 19 103/66 98 Nasal Cannula 10/08/23 15:15 36.5 C 74 17 111/66 98 Nasal Cannula 10/08/23 15:00 72 15 117/65 99 Nasal Cannula 10/08/23 14:50 73 19 118/64 99 Nasal Cannula 10/08/23 14:40 69 17 113/66 99 Nasal Cannula 10/08/23 14:30 70 16 115/69 93 Nasal Cannula 10/08/23 14:20 76 23 122/68 96 Oxymask 10/08/23 14:10 36.7 C 73 19 123/73 100 Oxymask 10/08/23 09:09 37.2 C 87 19 121/84 96 Room Air O2 Flow Rate 10/08/23 15:55 10/08/23 15:30 2 10/08/23 15:15 2 10/08/23 15:00 2 10/08/23 14:50 2 10/08/23 14:40 2 10/08/23 14:30 2 10/08/23 14:20 4 10/08/23 14:10 6 10/08/23 09:09 Transfer of Care Handoff Completed per policy Notes Mental Status: alert / awake / arousable Patient Amnestic to Procedure: Yes Nausea / Vomiting: adequately controlled Pain: adequately controlled Airway Patency, RR, SpO2: stable & adequate BP & HR: stable & adequate Hydration State: stable & adequate Neuraxial Anesthesia: was administered and sensory block is resolving Anesthetic Complications: no major complications apparent and Pt Satisfied with anesthetic care
[2023-10-08] MEDS: INSULIN ASPART PER UNIT CHARGE SC SCH ×2 (16:59→20:47)
[2023-10-08] MEDS: oxyCODONE HCL IR 5 MG TAB (IMMEDIATE RELEASE) PO PRN ×2 (17:11→23:19)
[2023-10-08] MEDS: ASCORBIC ACID 500 MG TAB PO SCH (17:19)
[2023-10-08] MEDS: KETOROLAC TROMETHAMINE 15 MG/ML VIAL IV SCH ×2 (18:02→23:19)
[2023-10-08] MEDS: ceFAZolin 2000MG 2,000 MG/15 ML SYR IV SCH (19:56)
[2023-10-08] MEDS ORDERED: TRANEXAMIC ACID / 0.7% NACL 1,000 MG/100 ML BAG IV SCH (20:15)
[2023-10-08] MEDS: ASPIRIN 81 MG ECTAB PO SCH (20:46)
[2023-10-08] MEDS: DOCUSATE SODIUM 100 MG CAP PO SCH (20:47)
[2023-10-08] MEDS: ACETAMINOPHEN 500 MG TAB PO SCH (20:47)
[2023-10-08] MEDS: SENNA 8.6 MG TAB PO SCH (20:49)
[2023-10-08] MEDS ORDERED: SENNA 8.6 MG TAB PO SCH (21:00)
[2023-10-08] MEDS ORDERED: SIMVASTATIN 20 MG TAB PO SCH (21:00)
[2023-10-08] MEDS ORDERED: COUGH DROP (SUGAR FREE) LOZ 24 LOZ/1 BOX BUCCAL ONE (21:38)
[2023-10-09] MEDS: Scopolamine CHECK PATCH PLACEMENT SCH ×2 (00:37→08:21)
[2023-10-09] MEDS: SODIUM CHLORIDE 0.9% 1,000 ML IV SCH (01:53)
[2023-10-09] MEDS: ceFAZolin 2000MG 2,000 MG/15 ML SYR IV SCH (05:04)
[2023-10-09] MEDS: oxyCODONE HCL IR 5 MG TAB (IMMEDIATE RELEASE) PO PRN (05:20)
[2023-10-09] MEDS: KETOROLAC TROMETHAMINE 15 MG/ML VIAL IV SCH (05:21)
[2023-10-09] MEDS ORDERED: LEVOTHYROXINE SODIUM 137 MCG TABLET PO SCH (06:30)
--- NOTE | 2023-10-09 07:09 | Surgery Progress Note ---
Date of Service October 09, 2023 Assessment & Plan (1) Status post right knee replacement: Plan: 67-year-old female postop day 1 from right knee replacement doing pretty well. Pain is controlled. She is neurologically intact. Mobilizing reasonably reasonably well. Plan: 1. DVT prophylaxis including thigh-high teds, SCDs, aspirin twice a day. 2. PT/OT. Weight-bear as tolerated right total knee protocol. 3. Pain control doing okay with current pain regimen. 4. Disposition plan to discharge home with some home health if she does okay in therapy today. Admission and Anticipated Discharge Date Admission Date: October 08, 2023 Subjective 67-year-old female postop day 1 from right knee replacement. She is doing pretty well. She says she has been up and walking with use of a walker. Moderate pain while ambulating. Fairly manageable and minimal pain lying in bed. No chest pain or shortness of breath. Not feeling dizzy or lightheaded. Hoping to go home today. Physical Exam Physical Exam: Physical examination was a pleasant middle-age female. She is lying in bed looks pretty comfortable this morning. Examination of the right leg reveals the leg to be well aligned. Dressings clean dry and intact. She can dorsiflex and plantarflex her foot appropriately. She is neurologically intact. Respiratory: normal respiratory effort, lungs clear to auscultation Cardiovascular: RRR, no murmur, no edema Gastrointestinal (Abdomen): normal bowel sounds, soft, nontender, no hepatosplenomegaly Results & Data Vital Signs (Past 12 Hours) Vital Signs Temp Pulse Resp BP Pulse Ox O2 Del Method 10/09/23 01:55 36.4 C L 69 18 141/85 H 96 Room Air 10/08/23 22:33 36.5 C 83 16 137/84 93 Room Air 10/08/23 19:40 Room Air Laboratory Results Am labs are pending. PG Care Time/CCT Total # of Minutes Spent Total Time Spent with Patient: Total time spent is greater than 50% in coordination of care (as documented) at patient's floor/unit and/or counseling patient: Coding Level of Care Code 43569 Post Operative Follow-Up Diagnoses Status post right knee replacement Z96.651
[2023-10-09] MEDS ORDERED: dexAMETHasone 4 MG TAB PO SCH (08:00)
[2023-10-09] MEDS: SENNA 8.6 MG TAB PO SCH (08:19)
[2023-10-09] MEDS: ASCORBIC ACID 500 MG TAB PO SCH (08:20)
[2023-10-09] MEDS: ASPIRIN 81 MG ECTAB PO SCH (08:20)
[2023-10-09] MEDS: DOCUSATE SODIUM 100 MG CAP PO SCH (08:20)
[2023-10-09] MEDS: ACETAMINOPHEN 500 MG TAB PO SCH (08:21)
[2023-10-09] MEDS: INSULIN ASPART PER UNIT CHARGE SC SCH (08:21)
[2023-10-09 08:23] LABS: Hemoglobin 11.7 g/dl (12.0-16.0); Mean Corpuscular Hemoglobin 28.9 pg (25.0-34.0); Mean Corpuscular Hgb Conc 33.4 g/dL (32.0-36.0); Mean Corpuscular Volume 86.4 fL (80.0-100.0); Mean Platelet Volume 10.2 fL (9.4-12.4); Platelet Count 217 K/uL (130-400); RDW Coefficient of Variation 14.6 % (11.5-14.5); RDW Standard Deviation 46.2 fL (36.4-46.3); Red Blood Count 4.05 M/uL (4.20-5.40); White Blood Count 12.97 K/ul (4.8-10.8)
[2023-10-09 08:38] LABS: BUN Creatinine Ratio 22.7 (10-20); Calcium 8.7 mg/dl (8.6-10.3); Creatinine Clr Calc Pharmacy 86.7 ml/min; Est GFR (African American) 79.4 ml/min; Est GFR (Non-African American) 68.5 ml/min
[2023-10-09] MEDS ORDERED: MULTIVITAMIN TAB PO SCH (09:00)
[2023-10-09] MEDS ORDERED: ANASTROZOLE 1 MG TAB PO SCH (09:00)
[2023-10-09] MEDS ORDERED: METOPROLOL SUCC 50MG EXT REL TAB PO SCH (09:00)
[2023-10-09] MEDS ORDERED: CHOLECALCIFEROL 1,000 UNITS 25 MCG TAB PO SCH (09:00)
[2023-10-09] MEDS ORDERED: FAMOTIDINE 20 MG TAB PO SCH (09:00)
[2023-10-09] MEDS ORDERED: LISINOPRIL/HCTZ 10/12.5MG TAB PO SCH (09:00)
[2023-10-09] MEDS ORDERED: VITAMIN B COMPLEX TAB PO SCH (09:00)
[2023-10-09] MEDS ORDERED: PANTOprazole 40 MG TAB PO SCH (09:00)
[2023-10-09] MEDS ORDERED: NON-FORMULARY MEDICATION (Multivitamin tablet) PO SCH (09:00)
--- NOTE | 2023-10-09 10:43 | Discharge Summary ---
Date of Service October 09, 2023 Principal Diagnosis Same as "Discharge Diagnosis" noted below under Discharge Instructions. Discharge Exam Physical examination was a pleasant middle-age female. She is lying in bed looks pretty comfortable this morning. Examination of the right leg reveals the leg to be well aligned. Dressings clean dry and intact. She can dorsiflex and plantarflex her foot appropriately. She is neurologically intact. Discharge Data Procedures Performed Operation Date: 10/08/23 10:20 Actual Procedures p Right Total Knee Arthroplasty(Right) - Sudhir Harvey MD Ordered Studies 10/08/23 05:00 US - OR guided needle placemen Routine Hospital Course (1) Status post right knee replacement: On October 08, 2023 Abbie arrived at [facility] and underwent a right total knee arthroplasty without complications. She had a spinal anesthetic. Postoperatively, she was started on aspirin for DVT prophylaxis and transferred to the general orthopedic floor in stable condition. Her hospital course was uneventful. On postoperative day #1, her vital signs were stable and her pain was well-controlled. She participated well with physical therapy doing ambulation and range of motion exercises. She was then discharged home in stable condition. She will follow-up in [address] Harvey for postoperative care. PG Care Time/CCT Total # of Minutes Spent Total Time Spent with Patient: Total time spent is greater than 50% in coordination of care (as documented) at patient's floor/unit and/or counseling patient: Discharge Plan Discharge Items Patient Disposition: Home - Home Health Services Reason For Visit: RIGHT KNEE REPLACEMENT Discharge Diagnosis: Right Knee replacement Activity: Per Instructions section Weightbearing: Full weightbearing Non-emergency contact: Surgeon Call non-emergency contact if: you have any medication questions Follow-up/Referrals: Neal Urrutia MD [Primary Care Provider] - Diet: Carb Consistent or DM2 Addtl Attending Provider Instructions: ACTIVITY RECOMMENDATIONS: Physical Therapy: * You will go to physical therapy three times each week for four to six weeks after your surgery in order to regain your knee range of motion and to retrain your knee to work properly. * It is just as important to make sure you are getting your knee perfectly straight as it is to regain your knee bend. * Taking a pain pill an hour before therapy can help you have a more productive and comfortable therapy session. Home Exercise: * You were shown a series of exercises (heel props, heel slides, etc.) in the hospital. Do these exercises three to four times each day including the exercises you were shown in physical therapy. Walking: * Get up and walk several times each day. For the first four weeks, try not to stand or walk for more than one hour at a time. If you do stand or walk for more than one hour, you will not hurt anything, but your knee and leg will likely swell. * As you feel comfortable, you may change from the walker or crutches to a cane and then to independent walking. MEDICATIONS: New Medicine: * You will likely be taking one or more of these medications: 1. Oxycodone - A quick and shorter-acting pain medication. Take one to two tablets every six hours to lessen your pain. 2. Aspirin - Thins your blood to lessen the chance of forming a blood clot. * The most common side effects of pain medicine and iron are nausea and constipation. If nausea or constipation is too much of a problem or if you have any questions about your new medicines or doses, call [facility] at . We will try to help you manage these issues. "VERY IMPORTANT TO READ AND REVIEW" Pain: * The immediate post-operative period after knee replacement surgery is often quite painful. * You are given a prescription for pain medicine. You should take it, as directed, when you need it, especially before physical therapy and before going to bed. Pain that interferes with sleep is very common and can last several months. * You will likely need pain medicine for the first four to six weeks. It will not stop all of the pain. The pain will lessen and as you feel better, you may change to milder pain medicine such as Tylenol. * The most common side effects of pain medicine are nausea and constipation, so don't take more than you need. SPECIAL CARE INSTRUCTIONS: TEDs/Elastic Stockings: * The white elastic stockings help limit swelling and prevent blood clots from forming in your legs. The more you wear them, the more they work. * Wear them for six weeks after knee replacement surgery and four weeks after partial knee replacement. Incision Site Care: * Remove dressing postoperative day 2 and then shower. Keep direct shower pressure off the incision site. * After showering, cover dhaval with dry gauze and change daily or more frequently if the dressing is getting saturated with drainage. * Use the ARLIN stockings to hold dressing in place. DO NOT apply tape on the skin. * May completely stop using bandage if wound is dry and no drainage * Caribou are removed between 2 and 3 weeks post-op. If your follow-up appointment is made before 2 weeks, please have your appointment re- scheduled. It is too early to remove the dhaval. Prevention of Infection: * Take antibiotics one hour before any dental cleaning, dental work, urological procedure, gastrointestinal procedure or any invasive surgery in order to prevent your new joint from getting infected. * You may get the antibiotics from the doctor performing the procedure or you may call our office at [phone] before and we will call in a prescription to the pharmacy of your choice. Things to Watch For: * Drainage from the incision site that occurs more than one week after your surgery. * Severely increased knee/leg pain or swelling. * Increased redness at the incision site. * Fever above 102 degrees Fahrenheit. * Unusual chest pain or shortness of breath. * Unusual pain or burning with urination. Call [facility] at [phone] with any of the above problems or if you have any questions about your medicines or recovery. FOLLOW UP VISIT: Make an appointment to see your doctor for approximately two weeks after surgery for a progress check and staple removal by calling the office at [phone]. Pending Studies at Discharge: No Stand-Alone Forms: [facility], Smoking Cessation Medications and DC Order Prescriptions: Continued loratadine [Claritin] 10 mg tablet 10 mg PO DAILY PRN (Reason: Allergy Symptoms) multivitamin Tablet 1 tab PO DAILY vitamin B complex Tablet 1 tab PO QAM amoxicillin 500 mg tablet 2,000 mg PO .COMPLEX Qty: 8 2RF Rx Instructions: 2,000 mg orally Take 1 hour prior to dental procedures; pantoprazole 40 mg tablet,delayed release (DR/EC) 40 mg PO QAM Qty: 90 3RF simvastatin 20 mg tablet 20 mg PO HS Qty: 90 3RF oxycodone 5 mg tablet 5 - 10 mg PO Q6 PRN (Reason: pain) Qty: 40 0RF Rx Instructions: Take as needed for pain ondansetron 4 mg tablet,disintegrating 4 mg PO Q8 PRN (Reason: nausea) Qty: 20 1RF Rx Instructions: Take as needed for nausea ketorolac 10 mg tablet 10 mg PO Q6 5 Days Qty: 20 0RF Rx Instructions: Take 4 times per day with food for 5 days to lessen pain and swelling. sennosides [Senokot] 8.6 mg tablet 8.6 mg PO BID 14 Days Qty: 28 0RF Rx Instructions: Take two times a day to prevent/treat constipation acetaminophen [Tylenol Extra Strength] 500 mg tablet 1,000 mg PO TID 30 Days Qty: 180 0RF Rx Instructions: Take 3 times per day to lessen pain. aspirin [Deon Low Dose Aspirin] 81 mg tablet,delayed release (DR/EC) 81 mg PO BID 45 Days Qty: 90 0RF Rx Instructions: Take to prevent blood clots. clindamycin phosphate 1 % solution 1 applic TOP DAILY Qty: 60 1RF Rx Instructions: Apply to areas of the scalp daily after washing as directed. famotidine [Acid Transportation Aid (famotidine)] 20 mg tablet 20 mg PO DAILY 42 Days Qty: 42 3RF anastrozole 1 mg tablet 1 mg PO QAM levothyroxine 137 mcg tablet 137 mcg PO .COMPLEX Qty: 90 3RF Rx Instructions: 137 mcg orally take 6 days per week; cholecalciferol (vitamin D3) [Vitamin D3] 50 mcg (2,000 unit) Capsule 50 mcg PO QAM metoprolol succinate 50 mg tablet extended release 24 hr 50 mg PO QAM lisinopril-hydrochlorothiazide 10-12.5 mg tablet 1 tab PO QAM metformin 500 mg tablet extended release 24 hr 500 mg PO QAM Discontinued cefadroxil 500 mg capsule 500 mg PO BID 7 Days Qty: 14 0RF Rx Instructions: Take 1 cap twice a day to prevent infection Admission Data Admit Date/Time: 10/08/23 14:18 Attending Provider: Sudhir Harvey Admit Provider: Sudhir Harvey Primary Care Provider: Neal Urrutia Other Providers: [facility]
== END 2023-10-09 12:33 | disposition home health service (06) ==
LOC: 3E 09:00 → ASU 09:00